=== PATIENT | female | born 1945 | race Two or more races ===

== ENCOUNTER → 2016-09-13 | Outpatient (CLI) | payer MEDICARE, MEDICAID ==
[2016-09-13 13:31] LABS: CHOLESTEROL 276.03 mg/dL (0-200); Direct HDL 48 mg/dL (>40); TRIGLYCERIDES 320 mg/dL (<150)
[2016-09-13 13:42] LABS: DIRECT LDL 166 mg/dL (<100)
== END ==
LOC: OD 12:13
PROVIDERS: ATTEND Internal Medicine
DX: E78.4 Other hyperlipidemia (principal); Z79.899 Other long term (current) drug therapy; R00.2 Palpitations; I10 Essential (primary) hypertension; E66.8 Other obesity; G47.30 Sleep apnea, unspecified; E13.9 Other specified diabetes mellitus without complications; R06.02 Shortness of breath; I25.10 Atherosclerotic heart disease of native coronary artery without angina pectoris
CPT/HCPCS: 36415; 80061

== ENCOUNTER → 2016-09-30 | Outpatient (CLI) | payer MEDICARE, MEDICAID | LOC: RAD 10:28 | PROVIDERS: ATTEND Urology | DX: N20.0 Calculus of kidney (principal) | CPT/HCPCS: 76770 ==

== ENCOUNTER 2016-10-27 17:52 | Emergency (ER) | payer MEDICARE, MEDICAID ==
[2016-10-27] MEDS ORDERED: ASPIRIN 81 MG TABLET, CHEWABLE PO ONE (18:23)
--- NOTE | 2016-10-27 18:40 | ER Document Report ---
ED Medical Screen (RME) - General Chief Complaint: Chest Pain Stated Complaint: CHEST PAIN,SHORTNESS OF BREATH Notes: Patient is complaining of anterior chest pain that goes into her left shoulder and left arm since yesterday. It's associated with shortness of breath, as well. Patient has felt this way in the past and has been her heart causing her symptoms. She has a history of a heart attack in the past. IDDM, hypertension. TRAVEL OUTSIDE OF THE [place] IN LAST 30 DAYS: No - Related Data Allergies/Adverse Reactions: codeine [Codeine] Allergy (Verified 10/27/16 17:58) Facial edema and rash oxycodone [Oxycodone] Allergy (Verified 10/27/16 17:58) Facial edema and rash oxycodone HCl [From Percocet] Allergy (Verified 10/27/16 17:58) Facial edema and rash Qdcpfkh-Jfw-Ars Reductase Inhibitor Allergy (Verified 10/27/16 17:58) muscle pain Past Medical History - Past Medical History Cardiac Medical History: Reports: Hx Hypercholesterolemia, Hx Hypertension, Hx Pulmonary Embolism Denies: Hx Atrial Fibrillation, Hx Congestive Heart Failure, Hx Coronary Artery Disease, Hx Heart Attack, Hx Peripheral Vascular Disease, Hx Heart Murmur Pulmonary Medical History: Reports: Hx Asthma - only with a cold, Hx Bronchitis , Hx Pneumonia, Hx Sleep Apnea Denies: Hx COPD, Hx Respiratory Failure, Hx Tuberculosis Neurological Medical History: Denies: Hx Cerebrovascular Accident, Hx Seizures Endocrine Medical History: Reports: Hx Diabetes Mellitus Type 1, Hx Diabetes Mellitus Type 2. Denies: Hx Graves' Disease, Hx Hyperthyroidism, Hx Hypothyroidism Renal/ Medical History: Reports: Hx Kidney Stones. Denies: Hx End Stage Renal Disease, Hx Ovarian Cysts, Hx Peritoneal Dialysis, Hx Pelvic Inflammatory Disease Malignancy Medical History: Denies: Hx Breast Cancer, Hx Cervical Cancer, Hx Leukemia, Hx Lung Cancer, Hx Ovarian Cancer GI Medical History: Reports: Hx Gastroesophageal Reflux Disease, Hx Endoscopy. Denies: Hx Crohn's Disease, Hx Hepatitis, Hx Hiatal Hernia, Hx Irritable Bowel, Hx Liver Failure, Hx Ulcer Musculoskeltal Medical History: Reports Hx Arthritis, Denies Hx Fibromyalgia, Denies Hx Multiple Sclerosis, Denies Hx Muscular Dystrophy, Reports Hx Musculoskeletal Deformity - carpal tunnel, knee replacement, Reports Hx Musculoskeletal Trauma Psychiatric Medical History: Reports: Hx Depression, Hx Schizophrenia Denies: Hx Bipolar Disorder, Hx Dementia, Hx Post Traumatic Stress Disorder Traumatic Medical History: Reports: Hx Fractures Infectious Medical History: Denies: Hx Hepatitis, Hx HIV Past Surgical History: Reports: Hx Cardiac Catheterization, Hx Cholecystectomy, Hx Hysterectomy - partial, Hx Orthopedic Surgery - bilateral knee replacement and carpal tunnel on left, Hx Pancreatic Surgery. Denies: Hx Colostomy, Hx Mastectomy, Hx Open Heart Surgery, Hx Pacemaker - Immunizations Hx Diphtheria, Pertussis, Tetanus Vaccination: Yes Physical Exam - Vital signs Vitals: Temp Pulse Resp BP Pulse Ox 97.8 F 87 20 150/101 H 96 10/27/16 17:57 10/27/16 17:57 10/27/16 17:57 10/27/16 17:57 10/27/16 17:57 Course - Vital Signs Vital signs: Temp Pulse Resp BP Pulse Ox 97.8 F 86 20 150/101 H 96 10/27/16 17:59 10/27/16 17:59 10/27/16 17:59 10/27/16 17:59 10/27/16 17:59
[2016-10-27 18:48] LABS: ABSOLUTE BASOPHILS # (AUTO) 0.1 10^3/uL (0.0-0.2); ABSOLUTE EOSINOPHILS # (AUTO) 0.3 10^3/uL (0.0-0.6); ABSOLUTE LYMPHOCYTES (AUTO) 3.3 10^3/uL (0.5-4.7); ABSOLUTE MONOCYTES (AUTO) 0.6 10^3/uL (0.1-1.4); ABSOLUTE NEUT (AUTO) 4.4 10^3/uL (1.7-8.2); BASOPHILS % (AUTO) 0.6 % (0-2); EOSINOPHILS % (AUTO) 3.3 % (0-6); HEMATOCRIT 39.7 % (36.0-47.0); HEMOGLOBIN 13.4 g/dL (12.0-15.5); HGB HCT DIFFERENCE 0.5; MEAN CORPUSCULAR HEMOGLOBIN 30.1 pg (27.0-33.4); MEAN CORPUSCULAR HGB CONC 33.7 g/dL (32.0-36.0); MEAN CORPUSCULAR VOLUME 89 fl (80-97); RED BLOOD COUNT 4.45 10^6/uL (3.72-5.28); RED CELL DISTRIBUTION WIDTH 14.1 % (11.5-14.0); SEGMENTED NEUTROPHILS % (AUTO) 51.1 % (42-78); WHITE BLOOD COUNT 8.7 10^3/uL (4.0-10.5)
[2016-10-27 19:07] LABS: ALANINE AMINOTRANSFERASE 33 U/L (9-52); ALBUMIN 4.1 g/dL (3.5-5.0); ALKALINE PHOSPHATASE 104 U/L (38-126); ANION GAP 15 (5-19); ASPARTATE AMINO TRANSFERASE 23 U/L (14-36); BILIRUBIN,DIRECT 0.4 mg/dL (0.0-0.4); BILIRUBIN,TOTAL 1.4 mg/dL (0.2-1.3); BLOOD UREA NITROGEN 30 mg/dL (7-20); CALCIUM 10.3 mg/dL (8.4-10.2); CARBON DIOXIDE 27 mmol/L (22-30); CHLORIDE 96 mmol/L (98-107); CREATINE KINASE 69 U/L (30-135); CREATININE RESULT 0.94 mg/dL (0.52-1.25); GLUCOSE 239 mg/dL (75-110); POTASSIUM 4.8 mmol/L (3.6-5.0); SODIUM 137.9 mmol/L (137-145); TOTAL PROTEIN 7.9 g/dL (6.3-8.2)
[2016-10-27 19:20] LABS: CREATINE KINASE MB 2.06 ng/mL (<4.55)
[2016-10-27 19:21] LABS: TROPONIN I < 0.012 ng/mL
--- NOTE | 2016-10-27 20:07 | EKG REPORT ---
SEVERITY:- ABNORMAL ECG - SINUS RHYTHM CONSIDER LEFT VENTRICULAR HYPERTROPHY : Confirmed by: Mary Otto MD 27-Oct-2016 20:06:54
[2016-10-28] MEDS ORDERED: MORPHINE SULFATE 10 MG/ML INJ IV ONE (00:14)
[2016-10-28] MEDS ORDERED: ONDANSETRON HCL INJ/PF 4 MG/2 ML SDV IV ONE (00:15)
--- NOTE | 2016-10-28 00:20 | ER Document Report ---
ED General - General Chief Complaint: Chest Pain Stated Complaint: CHEST PAIN,SHORTNESS OF BREATH Time seen by provider: 00:05 Notes: Patient is a 71-year-old female that comes emergency department for chief complaint of pain in the front of her chest that goes towards her back and then towards her left arm, she states that symptoms started about a day ago, she states her initial symptom was a cough, nonproductive, she denies fever. She states intermittently she feels like she is short of breath. Patient has a history of PE he, states she is not on any blood thinners, denies recent travel or surgery, denies smoking, however she states she has had left leg pains intermittently a few days ago. She denies any abdominal pain or flank pain, denies any urinary symptoms. Patient states she thinks she had an AL once, however she has had 3 cardiac catheterizations which were all negative. Other past medical history includes hypertension, hyperlipidemia, ESRD. TRAVEL OUTSIDE OF THE [place] IN LAST 30 DAYS: No - Related Data Allergies/Adverse Reactions: codeine [Codeine] Allergy (Verified 10/28/16 01:54) Facial edema and rash oxycodone [Oxycodone] Allergy (Verified 10/28/16 01:54) Facial edema and rash oxycodone HCl [From Percocet] Allergy (Verified 10/28/16 01:54) Facial edema and rash Vzbemsd-Ajv-Hif Reductase Inhibitor Allergy (Verified 10/28/16 01:54) muscle pain Past Medical History - General Information source: Patient - Social History Smoking Status: Never Smoker Frequency of alcohol use: None Drug Abuse: None Lives with: Family Family History: Arthritis, CAD, CVA, DM, Hyperlipidemia, Hypertension, Malignancy, Thyroid Disfunction Patient has suicidal ideation: No Patient has homicidal ideation: No - Past Medical History Cardiac Medical History: Reports: Hx Hypercholesterolemia, Hx Hypertension, Hx Pulmonary Embolism Denies: Hx Atrial Fibrillation, Hx Congestive Heart Failure, Hx Coronary Artery Disease, Hx Heart Attack, Hx Peripheral Vascular Disease, Hx Heart Murmur Pulmonary Medical History: Reports: Hx Asthma - only with a cold, Hx Bronchitis , Hx Pneumonia, Hx Sleep Apnea Denies: Hx COPD, Hx Respiratory Failure, Hx Tuberculosis Neurological Medical History: Denies: Hx Cerebrovascular Accident, Hx Seizures Endocrine Medical History: Reports: Hx Diabetes Mellitus Type 1, Hx Diabetes Mellitus Type 2. Denies: Hx Graves' Disease, Hx Hyperthyroidism, Hx Hypothyroidism Renal/ Medical History: Reports: Hx Kidney Stones. Denies: Hx End Stage Renal Disease, Hx Ovarian Cysts, Hx Peritoneal Dialysis, Hx Pelvic Inflammatory Disease Malignancy Medical History: Denies: Hx Breast Cancer, Hx Cervical Cancer, Hx Leukemia, Hx Lung Cancer, Hx Ovarian Cancer GI Medical History: Reports: Hx Gastroesophageal Reflux Disease, Hx Endoscopy. Denies: Hx Crohn's Disease, Hx Hepatitis, Hx Hiatal Hernia, Hx Irritable Bowel, Hx Liver Failure, Hx Ulcer Musculoskeltal Medical History: Reports Hx Arthritis, Denies Hx Fibromyalgia, Denies Hx Multiple Sclerosis, Denies Hx Muscular Dystrophy, Reports Hx Musculoskeletal Deformity - carpal tunnel, knee replacement, Reports Hx Musculoskeletal Trauma Psychiatric Medical History: Reports: Hx Depression, Hx Schizophrenia Denies: Hx Bipolar Disorder, Hx Dementia, Hx Post Traumatic Stress Disorder Traumatic Medical History: Reports: Hx Fractures Infectious Medical History: Denies: Hx Hepatitis, Hx HIV Past Surgical History: Reports: Hx Cardiac Catheterization, Hx Cholecystectomy, Hx Hysterectomy - partial, Hx Orthopedic Surgery - bilateral knee replacement and carpal tunnel on left, Hx Pancreatic Surgery. Denies: Hx Colostomy, Hx Mastectomy, Hx Open Heart Surgery, Hx Pacemaker - Immunizations Hx Diphtheria, Pertussis, Tetanus Vaccination: Yes Hx Pneumococcal Vaccination: 12/07/12 Review of Systems - Review of Systems Constitutional: No symptoms reported EENT: No symptoms reported Cardiovascular: See HPI Respiratory: See HPI Gastrointestinal: No symptoms reported Genitourinary: No symptoms reported Female Genitourinary: No symptoms reported Musculoskeletal: See HPI Skin: No symptoms reported Hematologic/Lymphatic: No symptoms reported Neurological/Psychological: No symptoms reported Physical Exam - Vital signs Vitals: Temp Pulse Resp BP Pulse Ox 97.8 F 87 20 150/101 H 96 10/27/16 17:57 10/27/16 17:57 10/27/16 17:57 10/27/16 17:57 10/27/16 17:57 Interpretation: Normal - General General appearance: Appears well, Alert In distress: None - Conversational and smiling - HEENT Head: Normocephalic, Atraumatic Eyes: Normal Conjunctiva: Normal Extraocular movements intact: Yes Eyelashes: Normal Pupils: PERRL Mucous membranes: Normal Pharynx: Normal Neck: Normal - Respiratory Respiratory status: No respiratory distress Chest status: Tender - Specific and reproducible pain with palpation of the right sided sternal border, very mild generalized tenderness otherwise, no erythema, swelling, ecchymosis Breath sounds: Normal. No: Decreased air movement, Wheezing Chest palpation: Normal - Cardiovascular Rhythm: Regular. No: Tachycardia Heart sounds: Normal auscultation, S1 appreciated, S2 appreciated Murmur: No - Abdominal Inspection: Normal Distension: No distension Bowel sounds: Normal Tenderness: Nontender. No: Tender Organomegaly: No organomegaly - Back Back: Normal, Nontender - Extremities General upper extremity: Normal inspection, Nontender, Normal color, Normal ROM , Normal temperature General lower extremity: Normal inspection, Nontender, Normal color, Normal ROM , Normal temperature, Normal weight bearing. No: Linda's sign - Neurological Neuro grossly intact: Yes Cognition: Normal Orientation: AAOx4 [place] Coma Scale Eye Opening: Spontaneous [place] Coma Scale Verbal: Oriented [place] Coma Scale Motor: Obeys Commands [place] Coma Scale Total: 15 Speech: Normal Motor strength normal: LUE, RUE, LLE, RLE Sensory: Normal - Psychological Associated symptoms: Normal affect, Normal mood - Skin Skin Temperature: Warm Skin Moisture: Dry Skin Color: Normal Course - Re-evaluation Re-evalutation: EKG with no significant T-wave inversions in consecutive leads, no ST segment changes, shows sinus rhythm. No significant change from prior. Chest x-ray unremarkable. CBC, chemistry generally patient's baseline, 2 negative sets of cardiac enzymes performed. CTA was performed to rule out pulmonary emboli, this was normal. Urinalysis contaminated with a lot of squamous epithelials, patient denies any urinary symptoms. Urine culture placed. Patient has palpable chest pain on her chest wall. Discussed with Dr. Zendejas. 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 Recommend this point patient perform follow-up with her jeep driver tomorrow, discusses patient in detail, patient states satisfaction and agreement with plan , family member states satisfaction and agreement. Symptom management provided. - Vital Signs Vital signs: Temp Pulse Resp BP Pulse Ox 98 F 78 20 148/87 H 98 10/28/16 03:40 10/28/16 03:40 10/28/16 03:40 10/28/16 03:40 10/28/16 03:40 - Laboratory Result Diagrams: 10/27/16 18:30 10/27/16 18:30 Laboratory results interpreted by me: 10/27/16 10/27/16 10/27/16 18:30 18:30 23:39 RDW 14.1 H Chloride 96 L BUN 30 H Est GFR (Non-Af Amer) 59 L Glucose 239 H Calcium 10.3 H Total Bilirubin 1.4 H Urine Protein 100 H Ur Leukocyte Esterase SMALL H Discharge - Discharge Clinical Impression: Cough Chest pain Qualifiers: Chest pain type: unspecified Qualified Code(s): R07.9 - Chest pain, unspecified Condition: Stable Disposition: HOME, SELF-CARE Additional Instructions: Your workup today did not show a blood clot, evidence of a heart attack, or any other concerning abnormality. This appears to be from her chest wall and coughing symptoms, take the pain medications and stool softener with it if needed, please call tomorrow to follow -up with your jeep driver closely. Return the emergency department for any concerning or worsening symptoms. Prescriptions: Docusate Sodium [Colace 100 mg Capsule] 100 mg PO DAILY #30 capsule Oxycodone HCl/Acetaminophen [Percocet 5-325 mg Tablet] 1 - 2 tab PO Q4H PRN #15 tablet PRN Reason: Referrals: TARSHA MAC PA-C [Primary Care Provider] - Follow up as needed
[2016-10-28 00:47] LABS: AMORPHOUS SEDIMENT,URINE TRACE /HPF; APPEARANCE,URINE CLOUDY; BILIRUBIN,URINE NEGATIVE (NEGATIVE); GLUCOSE, URINE NEGATIVE (NEGATIVE); KETONES,URINE NEGATIVE (NEGATIVE); LEUKOCYTE ESTERASE,URINE SMALL (NEGATIVE); NITRITE,URINE NEGATIVE (NEGATIVE); PROTEIN,URINE 100 mg/dL (NEGATIVE); URINE SPECIFIC GRAVITY 1.017; UROBILINOGEN,URINE NEGATIVE mg/dL (<2.0)
[2016-10-28 04:07] VITALS: BP 148/87
--- NOTE | 2016-10-28 07:41 | EKG REPORT ---
SEVERITY:- ABNORMAL ECG - SINUS RHYTHM NONSPECIFIC T ABNORMALITIES, DIFFUSE LEADS : Confirmed by: Mary Otto MD 28-Oct-2016 07:41:03
== END 2016-10-28 03:40 | disposition home or self-care (01) ==
LOC: ER 17:52
DX: R07.9 Chest pain, unspecified (principal); R05 Cough; R06.02 Shortness of breath; M79.602 Pain in left arm; Z86.711 Personal history of pulmonary embolism
CPT/HCPCS: 93005; 99285; 96374; 96375; 36415; 87086; 82553; 82550; 85025; 87088; 80053; 81001; 84484; 87186; 71010; 71275; 93010; J2270; J2405

== ENCOUNTER 2017-01-08 21:17 | Emergency (ER) | payer MEDICARE, MEDICAID ==
[2017-01-08] MEDS ORDERED: OXYCODONE-ACETAMINOPHEN 5-325 MG TABLET PO ONE (22:56)
--- NOTE | 2017-01-08 22:57 | ER Document Report ---
HPI - HPI Patient complains to provider of: left foot injury Pain Level: 4 Context: Patient is a 71-year-old female who comes emergency department for chief complaint of left ankle and foot injury. She states she was walking quickly in the dark and accidentally hit her foot/ankle on a dresser. She reports bruising and swelling to both the foot and the ankle. Patient denies falling, denies any other injuries. She is not on a blood thinner. - CARDIOVASCULAR Cardiovascular: DENIES: Chest pain - REPRODUCTIVE LMP: na Reproductive: DENIES: : - DERM Skin Color: Ecchymosis Past Medical History - General Information source: Patient - Social History Smoking Status: Never Smoker Chew tobacco use (# tins/day): No Frequency of alcohol use: None Drug Abuse: None Lives with: Family Family History: Arthritis, CAD, CVA, DM, Hyperlipidemia, Hypertension, Malignancy, Thyroid Disfunction Patient has suicidal ideation: No Patient has homicidal ideation: No - Past Medical History Cardiac Medical History: Reports: Hx Hypercholesterolemia, Hx Hypertension, Hx Pulmonary Embolism Denies: Hx Atrial Fibrillation, Hx Congestive Heart Failure, Hx Coronary Artery Disease, Hx Heart Attack, Hx Peripheral Vascular Disease, Hx Heart Murmur Pulmonary Medical History: Reports: Hx Asthma - only with a cold, Hx Bronchitis , Hx Pneumonia, Hx Sleep Apnea Denies: Hx COPD, Hx Respiratory Failure, Hx Tuberculosis Neurological Medical History: Denies: Hx Cerebrovascular Accident, Hx Seizures Endocrine Medical History: Reports: Hx Diabetes Mellitus Type 2. Denies: Hx Graves' Disease, Hx Hyperthyroidism, Hx Hypothyroidism Renal/ Medical History: Reports: Hx Kidney Stones. Denies: Hx End Stage Renal Disease, Hx Ovarian Cysts, Hx Peritoneal Dialysis, Hx Pelvic Inflammatory Disease Malignancy Medical History: Denies: Hx Breast Cancer, Hx Cervical Cancer, Hx Leukemia, Hx Lung Cancer, Hx Ovarian Cancer GI Medical History: Reports: Hx Gastroesophageal Reflux Disease, Hx Endoscopy. Denies: Hx Crohn's Disease, Hx Hepatitis, Hx Hiatal Hernia, Hx Irritable Bowel, Hx Liver Failure, Hx Ulcer Musculoskeltal Medical History: Reports Hx Arthritis, Denies Hx Fibromyalgia, Denies Hx Multiple Sclerosis, Denies Hx Muscular Dystrophy, Reports Hx Musculoskeletal Deformity - carpal tunnel, knee replacement, Reports Hx Musculoskeletal Trauma Psychiatric Medical History: Reports: Hx Depression, Hx Schizophrenia Denies: Hx Bipolar Disorder, Hx Dementia, Hx Post Traumatic Stress Disorder Traumatic Medical History: Reports: Hx Fractures Infectious Medical History: Denies: Hx Hepatitis, Hx HIV Past Surgical History: Reports: Hx Cardiac Catheterization, Hx Cholecystectomy, Hx Hysterectomy, Hx Orthopedic Surgery - bilateral knee replacement and carpal tunnel on left, Hx Pancreatic Surgery. Denies: Hx Colostomy, Hx Mastectomy, Hx Open Heart Surgery, Hx Pacemaker - Immunizations Hx Diphtheria, Pertussis, Tetanus Vaccination: Yes Hx Pneumococcal Vaccination: 12/07/12 Vertical Provider Document - CONSTITUTIONAL General Appearance: WD/WN, No Apparent Distress, Obese - INFECTION CONTROL TRAVEL OUTSIDE OF THE [place] IN LAST 30 DAYS: No - HEENT HEENT: Atraumatic, Normocephalic - NECK Neck: Normal Inspection - RESPIRATORY Respiratory: Breath Sounds Normal, No Respiratory Distress O2 Sat by Pulse Oximetry: 95 - CARDIOVASCULAR Cardiovascular: Regular Rate, Regular Rhythm - GI/ABDOMEN Gastrointestinal: Abdomen Soft, Abdomen Non-Tender - BACK Back: Normal Inspection - MUSCULOSKELETAL/EXTREMETIES Musculoskeletal/Extremeties: Tender - There is a small amount of ecchymosis over the second and third digits of the left foot, mild tenderness over the top of the foot, there is some lateral and anterior swelling over the distal part of the left ankle, normal range of motion of the lower extremity, normal distal neurovascular exam, no open wounds, no other abnormality noted - NEURO Level of Consciousness: Awake, Alert, Appropriate Motor/Sensory: No Motor Deficit, No Sensory Deficit - DERM Integumentary: Warm, Dry, No Rash Course - Vital Signs Vital signs: Temp Pulse Resp BP Pulse Ox 97.7 F 73 16 150/82 H 95 01/08/17 21:39 01/08/17 21:39 01/08/17 21:39 01/08/17 21:39 01/08/17 21:39 - Diagnostic Test Radiology reviewed: Image reviewed, Reports reviewed Procedures - Immobilization left ankle Pre-Proc Neuro Vasc Exam: Normal Immobilizer type: Cock-up Performed by: RN Post-Proc Neuro Vasc Exam: Normal Alignment checked and good: Yes Discharge - Discharge Clinical Impression: Injury of left foot Qualifiers: Encounter type: initial encounter Qualified Code(s): S99.922A - Unspecified injury of left foot, initial encounter Left ankle injury Qualifiers: Encounter type: initial encounter Qualified Code(s): S99.912A - Unspecified injury of left ankle, initial encounter Condition: Stable Disposition: HOME, SELF-CARE Additional Instructions: There is some soft tissue swelling in both the foot and the ankle, however no fracture or other abnormality is seen on x-ray. Ice, elevate, take Tylenol for pain, placed ice on the area 3-4 times a day for 10-15 minutes, use the ankle stirrup for additional support. Follow-up with primary care. Return to the emergency department for any concerning symptoms including severe swelling, redness, or any other concerning symptoms.
--- NOTE | 2017-01-09 00:07 | RADIOLOGY REPORT (SQ) ---
EXAM DESCRIPTION: FOOT LEFT COMPLETE COMPLETED DATE/TIME: 01/08/2017 11:57 pm REASON FOR STUDY: hit on dresser, pain and swelling COMPARISON: None. NUMBER OF VIEWS: Three views. TECHNIQUE: AP, lateral and oblique radiographic images acquired of the left foot. LIMITATIONS: None. FINDINGS: MINERALIZATION: Osteopenia. BONES: No acute fracture or dislocation. No worrisome bone lesions. 0.2 cm ossicular fragmentation at the medial aspect of the left 1st proximal phalangeal head. JOINTS: No effusions. Mild osteoarthritis forefoot. SOFT TISSUES: No soft tissue swelling. No foreign body. OTHER: No other significant finding. IMPRESSION: NO RADIOGRAPHIC EVIDENCE OF ACUTE INJURY. TECHNICAL DOCUMENTATION: JOB ID: [id number] [employer]}- All Rights Reserved
--- NOTE | 2017-01-09 00:09 | RADIOLOGY REPORT (SQ) ---
EXAM DESCRIPTION: ANKLE LEFT COMPLETE COMPLETED DATE/TIME: 01/08/2017 11:57 pm REASON FOR STUDY: hit on dresser, pain and swelling COMPARISON: None. NUMBER OF VIEWS: Three views. TECHNIQUE: AP, lateral, and oblique radiographic images acquired of the left ankle. LIMITATIONS: None. FINDINGS: MINERALIZATION: Normal. BONES: No acute fracture or dislocation. No worrisome bone lesions. Small calcaneal enthesophytes. JOINTS: No effusions. SOFT TISSUES: Moderate diffuse ankle swelling. OTHER: No other significant finding. IMPRESSION: Moderate diffuse ankle swelling. TECHNICAL DOCUMENTATION: JOB ID: [id number] [employer]- All Rights Reserved
[2017-01-09] MEDS ORDERED: HYDROCODONE/ACETAMINOPHEN 5-325 MG 6 TAB/DSPK PO PRN (00:16)
[2017-01-09] MEDS ORDERED: DIPHENHYDRAMINE HCL 25 MG CAPSULE PO ONE (00:27)
[2017-01-09] MEDS ORDERED: OXYCODONE-ACETAMINOPHEN 5-325 MG TABLET PO ONE (00:27)
[2017-01-09 00:45] VITALS: BP 141/80
== END 2017-01-09 00:44 | disposition home or self-care (01) ==
LOC: ER 21:17
DX: S99.922A Unspecified injury of left foot, initial encounter (principal); S99.912A Unspecified injury of left ankle, initial encounter; W22.03XA Walked into furniture, initial encounter; E78.00 Pure hypercholesterolemia, unspecified; I10 Essential (primary) hypertension; E11.9 Type 2 diabetes mellitus without complications; Z87.442 Personal history of urinary calculi; K21.9 Gastro-esophageal reflux disease without esophagitis; Z90.49 Acquired absence of other specified parts of digestive tract; Z90.710 Acquired absence of both cervix and uterus; Z96.653 Presence of artificial knee joint, bilateral; Z86.711 Personal history of pulmonary embolism
CPT/HCPCS: 99283; 73610; 73630; L1902; A9270 ×2

== ENCOUNTER 2017-03-17 07:19 | Day surgery (SDC) | payer MEDICARE, MEDICAID ==
[~2017-03-17 07:19] MED LIST: KETOROLAC TROMETHAMINE 0.45% 4 DROP/0.4 ML DROPERETTE OD PRN
[2017-03-17] MEDS: CYCLOPENTOLATE 0.2%/PHENYLEPHRINE 1% OPH SOLN 2 ML OD PRN ×3 (07:43→08:15)
[2017-03-17] MEDS: TROPICAMIDE 1% OPH SOLN 3 ML OD PRN ×3 (07:43→08:15)
[2017-03-17] MEDS: BESIFLOXACIN HCL 0.6% OPH SUSP 5 ML BOTTLE OD PRN ×3 (07:44→08:56)
[2017-03-17] MEDS: TETRACAINE HCL 0.5% OPH SOLN 2 ML OD PRN ×3 (07:45→08:33)
[2017-03-17] MEDS ORDERED: EPINEPHRINE INJ/PF 1 MG/1 ML AMPULE ONE (07:48)
[2017-03-17] MEDS ORDERED: LIDOCAINE 1% INJ-PF (10 MG/ML) 30 ML SDV ONE (07:49)
[2017-03-17] MEDS ORDERED: CHONDR SU A NA/HYALUR INTRAOC KIT (SURGICARE) ONE (07:49)
[2017-03-17] MEDS ORDERED: MIDAZOLAM 2 MG/2 ML INJ ONE (08:07)
--- NOTE | 2017-03-17 15:03 | DISCHARGE SUMMARY E ---
Discharge Summary NAME: TERESA JOEL : 1945 AGE: 72Y ADMITTED: 03/17/2017 DISCHARGED: 03/17/2017 HISTORY AND HOSPITAL COURSE: This is a 72-year-old female who underwent cataract extraction of the right eye. Diagnosis: Cataract, right eye. She underwent surgery because she was having trouble reading small print and seeing road signs. DISCHARGE INSTRUCTIONS: She should be on a regular diet. No bending at the waist. No heavy lifting. She should use her Besivance, Durezol, and Ilevro at 3:00 p.m. and 8:00 p.m. and sleep with a rigid shield, and I will see them for a 1-day postoperative followup. DICTATING PHYSICIAN: XAVIER CHAUHAN M.D. [id number] PHY#: [id number] ID: [id number] JOB#: [id number] ACCT: [id number] cc:XAVIER CHAUHAN M.D. >
--- NOTE | 2017-03-17 16:23 | [facility] OPERATIVE REPORT E ---
[facility] Operative Report NAME: TERESA JOEL AGE: 72Y DATE OF SURGERY: 03/17/2017 ROOM: PREOPERATIVE DIAGNOSIS: CATARACT, RIGHT EYE. POSTOPERATIVE DIAGNOSIS: CATARACT, RIGHT EYE. OPERATION: Cataract extraction with intraocular lens implant of the right eye. SURGEON: XAVIER CHAUHAN M.D. ANESTHESIA: Topical. PROCEDURE: After obtaining appropriate consent, the patient's right eye was prepped and draped in sterile fashion as well as the surgeon in a sterile manner and cataract surgery was started. First a paracentesis blade was used to make a small side-port incision. Viscoelastic was used to inflate the anterior chamber. Next a 2.4 mm incision was made with the paracentesis blade. A continuous capsulorrhexis incision was made using a cystotome and Utrata forceps. Following this hydrodissection was carried out to make the lens fully loose and mobile and it was rotated 90 degrees. Following this, a xnotwd-ikw-camarvy technique was used to phacoemulsify the lens with a CDE of 10.92. The remaining cortex was removed with irrigation/aspiration. Provisc was instilled into the capsular bag to inflate the bag. A SN60WF, 21.5 diopter lens was placed. The remaining viscoelastic material was removed with irrigation/aspiration. Following this, a 10-0 nylon suture was used to close the incision and it was found to be watertight. Vigamox was instilled in the eye and a protective shield was placed over the eye. The patient returned to the postoperative recovery in stable condition. DICTATING PHYSICIAN: XAVIER CHAUHAN M.D. [id number] PHY#: [id number] ID: [id number] JOB#: [id number] ACCT: [id number] cc:XAVIER CHAUHAN M.D. >
== END 2017-03-17 09:57 | disposition home or self-care (01) ==
LOC: SC 07:19
PROVIDERS: ATTEND Internal Medicine
PROC: 08RJ3JZ Replacement of Right Lens with Synthetic Substitute, Percutaneous Approach (ICD-10-PCS; principal; 2017-03-17 08:30)
DX: H25.11 Age-related nuclear cataract, right eye (principal); Z96.1 Presence of intraocular lens; H04.123 Dry eye syndrome of bilateral lacrimal glands; H40.052 Ocular hypertension, left eye; E11.9 Type 2 diabetes mellitus without complications; J45.909 Unspecified asthma, uncomplicated; K21.9 Gastro-esophageal reflux disease without esophagitis; I10 Essential (primary) hypertension; I25.2 Old myocardial infarction; Z79.51 Long term (current) use of inhaled steroids; Z79.4 Long term (current) use of insulin; Z79.899 Other long term (current) drug therapy; Z88.5 Allergy status to narcotic agent; Z98.42 Cataract extraction status, left eye
CPT/HCPCS: 66984; 82962; V2632; J2250; J3490 ×2; A9270; J0171; 142

== ENCOUNTER 2017-04-16 17:11 | Emergency (ER) | payer MEDICARE, MEDICAID ==
--- NOTE | 2017-04-16 17:58 | ER Document Report ---
ED Medical Screen (RME) - General Chief Complaint: Chest Pain Stated Complaint: CHEST PAIN Time Seen by Provider: 04/16/17 17:49 Mode of Arrival: Ambulatory Information source: Patient Notes: 72-year-old female presents with complaints of dizziness over the past 2 days had a syncopal episode today and had some slurred speech with it at 4:11 PM, she admits to chest pain I have greeted and performed a rapid initial assessment of this patient. A comprehensive ED assessment and evaluation of the patient, analysis of test results and completion of the medical decision making process will be conducted by additional ED providers. PHYSICAL EXAMINATION: GENERAL: Well-appearing, well-nourished and in no acute distress. HEAD: Atraumatic, normocephalic. EYES: Pupils equal round extraocular movements intact, conjunctiva are normal. ENT: Nares patent NECK: Normal range of motion LUNGS: No respiratory distress Musculoskeletal: Normal range of motion NEUROLOGICAL: Normal speech, normal gait. PSYCH: Normal mood, normal affect. SKIN: Warm, Dry, normal turgor, no rashes or lesions noted. TRAVEL OUTSIDE OF THE [place] IN LAST 30 DAYS: No - Related Data Allergies/Adverse Reactions: codeine [Codeine] Allergy (Verified 04/16/17 17:28) Facial edema and rash Past Medical History - Social History Frequency of alcohol use: None Drug Abuse: None - Past Medical History Cardiac Medical History: Reports: Hx Heart Attack - 2016, Hx Hypercholesterolemia, Hx Hypertension - MEDICATED, Hx Pulmonary Embolism Denies: Hx Atrial Fibrillation, Hx Congestive Heart Failure, Hx Coronary Artery Disease, Hx Peripheral Vascular Disease, Hx Heart Murmur Pulmonary Medical History: Reports: Hx Asthma - MED PRN, Hx Bronchitis, Hx Pneumonia, Hx Sleep Apnea Denies: Hx COPD, Hx Respiratory Failure, Hx Tuberculosis Neurological Medical History: Denies: Hx Cerebrovascular Accident, Hx Seizures Endocrine Medical History: Reports: Hx Diabetes Mellitus Type 1, Hx Diabetes Mellitus Type 2. Denies: Hx Graves' Disease, Hx Hyperthyroidism, Hx Hypothyroidism Renal/ Medical History: Reports: Hx Kidney Stones. Denies: Hx End Stage Renal Disease, Hx Ovarian Cysts, Hx Peritoneal Dialysis, Hx Pelvic Inflammatory Disease Malignancy Medical History: Denies: Hx Breast Cancer, Hx Cervical Cancer, Hx Leukemia, Hx Lung Cancer, Hx Ovarian Cancer GI Medical History: Reports: Hx Gastroesophageal Reflux Disease, Hx Endoscopy. Denies: Hx Crohn's Disease, Hx Hepatitis, Hx Hiatal Hernia, Hx Irritable Bowel, Hx Liver Failure, Hx Ulcer Musculoskeltal Medical History: Reports Hx Arthritis - RA, Denies Hx Fibromyalgia, Denies Hx Multiple Sclerosis, Denies Hx Muscular Dystrophy, Reports Hx Musculoskeletal Deformity - carpal tunnel, knee replacement, Reports Hx Musculoskeletal Trauma Psychiatric Medical History: Reports: Hx Depression, Hx Schizophrenia Denies: Hx Bipolar Disorder, Hx Dementia, Hx Post Traumatic Stress Disorder Traumatic Medical History: Reports: Hx Fractures Infectious Medical History: Denies: Hx Hepatitis, Hx HIV Past Surgical History: Reports: Hx Cardiac Catheterization, Hx Cholecystectomy, Hx Hysterectomy, Hx Orthopedic Surgery - bilateral knee replacement and carpal tunnel on left, Hx Pancreatic Surgery. Denies: Hx Colostomy, Hx Mastectomy, Hx Open Heart Surgery, Hx Pacemaker - Immunizations Hx Diphtheria, Pertussis, Tetanus Vaccination: Yes Physical Exam - Vital signs Vitals: Temp Pulse Resp BP Pulse Ox 97.7 F 78 20 155/72 H 96 04/16/17 17:30 04/16/17 17:30 04/16/17 17:30 04/16/17 17:30 04/16/17 17:30 Course - Vital Signs Vital signs: Temp Pulse Resp BP Pulse Ox 97.7 F 78 20 155/72 H 96 04/16/17 17:30 04/16/17 17:30 04/16/17 17:30 04/16/17 17:30 04/16/17 17:30
--- NOTE | 2017-04-16 18:17 | RADIOLOGY REPORT (SQ) ---
EXAM DESCRIPTION: CT HEAD WITHOUT COMPLETED DATE/TIME: 04/16/2017 6:05 pm REASON FOR STUDY: dizziness, slurred speech COMPARISON: 01/31/2012 TECHNIQUE: Axial images acquired through the brain without intravenous contrast. Images reviewed wi th bone, brain and subdural windows. Images stored on PACS. All CT scanners at this facility use dose modulation, iterative reconstruction, and/or weight based d osing when appropriate to reduce radiation dose to as low as reasonably achievable (ALARA). [facility]: Dose Right [facility]: CareDose [facility]: Dose Right [facility]: Teradose 4D [facility]: [employer] RADIATION DOSE: Up-to-date CT equipment and radiation dose reduction techniques were employed. CTDIv ol: 64.6 mGy. DLP: 1163 mGy-cm. mGy. LIMITATIONS: None. FINDINGS: VENTRICLES: Normal size and contour. CEREBRUM: No masses. No hemorrhage. No midline shift. No evidence for acute infarction. Normal gra y/white matter differentiation. No areas of low density in the white matter. CEREBELLUM: No masses. No hemorrhage. No alteration of density. No evidence for acute infarction. EXTRAAXIAL SPACES: No fluid collections. No masses. ORBITS AND GLOBE: No intra- or extraconal masses. Normal contour of globe without masses. CALVARIUM: No fracture. PARANASAL SINUSES: No fluid or mucosal thickening. SOFT TISSUES: No mass or hematoma. OTHER: No other significant finding. IMPRESSION: NORMAL BRAIN CT WITHOUT CONTRAST. EVIDENCE OF ACUTE STROKE: NO. COMMENT: Quality ID # [id number]: Final reports with documentation of one or more dose reduction techniques (e.g., Automated exposure control, adjustment of the mA and/or kV according to patient size, use of iterative reconstruction technique) TECHNICAL DOCUMENTATION: JOB ID: [id number] [employer]- All Rights Reserved
[2017-04-16] MEDS ORDERED: MECLIZINE HCL 25 MG TABLET PO ONE (18:33)
--- NOTE | 2017-04-16 18:34 | ER Document Report ---
ED General - General Chief Complaint: Chest Pain Stated Complaint: CHEST PAIN Time Seen by Provider: 04/16/17 17:49 Mode of Arrival: Ambulatory Information source: Patient, Relative Notes: This 72-year-old female patient comes emergency room complaining of episodes of dizziness off and on for the past 3 days. Today she was sweeping a floor in front of her sofa when she had sudden onset of dizziness, felt like she was going to fall out and set herself on the sofa. There was no loss of consciousness. There was no injury. She also reports left-sided chest pain and left arm pain. She notes that the dizziness is worse when she turns her head to either side. TRAVEL OUTSIDE OF THE [place] IN LAST 30 DAYS: No - Related Data Allergies/Adverse Reactions: codeine [Codeine] Allergy (Verified 04/16/17 17:28) Facial edema and rash Past Medical History - General Information source: Patient, Relative, [facility] Records - Social History Smoking Status: Never Smoker Cigarette use (# per day): No Chew tobacco use (# tins/day): No Smoking Education Provided: No Frequency of alcohol use: None Drug Abuse: None Lives with: Family Family History: Arthritis, CAD, CVA, DM, Hyperlipidemia, Hypertension, Malignancy, Thyroid Disfunction - Past Medical History Cardiac Medical History: Reports: Hx Heart Attack, Hx Hypercholesterolemia, Hx Hypertension Pulmonary Medical History: Reports: Hx Asthma - MED PRN, Hx Bronchitis, Hx Pneumonia, Hx Sleep Apnea EENT Medical History: Reports: None Neurological Medical History: Reports: None Endocrine Medical History: Reports: Hx Diabetes Mellitus Type 2 Renal/ Medical History: Reports: Hx Kidney Stones GI Medical History: Reports: Hx Gastroesophageal Reflux Disease, Hx Endoscopy Musculoskeltal Medical History: Reports Hx Arthritis - RA, Reports Hx Musculoskeletal Deformity - carpal tunnel, knee replacement, Reports Hx Musculoskeletal Trauma Psychiatric Medical History: Reports: Hx Depression, Hx Schizophrenia Traumatic Medical History: Reports: Hx Fractures Past Surgical History: Reports: Hx Cardiac Catheterization, Hx Cholecystectomy, Hx Hysterectomy, Hx Orthopedic Surgery - bilateral knee replacement and carpal tunnel on left, Hx Pancreatic Surgery - Immunizations Hx Diphtheria, Pertussis, Tetanus Vaccination: Yes Hx Pneumococcal Vaccination: 12/07/12 Review of Systems - Review of Systems Constitutional: No symptoms reported EENT: No symptoms reported Cardiovascular: Chest pain - Prior visits for chest wall pain Respiratory: No symptoms reported Gastrointestinal: No symptoms reported Genitourinary: No symptoms reported Female Genitourinary: Post menopausal Musculoskeletal: No symptoms reported Skin: No symptoms reported Hematologic/Lymphatic: No symptoms reported Neurological/Psychological: See HPI Physical Exam - Vital signs Vitals: Temp Pulse Resp BP Pulse Ox 97.7 F 78 20 155/72 H 96 04/16/17 17:30 04/16/17 17:30 04/16/17 17:30 04/16/17 17:30 04/16/17 17:30 Interpretation: Normal - General General appearance: Appears well, Alert In distress: None - HEENT Head: Normocephalic, Atraumatic Eyes: Normal Extraocular movements intact: Yes - There is some nystagmus following rapid head movement Pupils: PERRL Neck: Normal - Respiratory Respiratory status: No respiratory distress Breath sounds: Normal - Cardiovascular Rhythm: Regular Heart sounds: Normal auscultation Murmur: No - Abdominal Inspection: Obese Bowel sounds: Normal Tenderness: Nontender - Back Back: Normal - Extremities General upper extremity: Normal strength, Normal temperature General lower extremity: Normal inspection, Normal strength. No: Edema - Neurological Neuro grossly intact: Yes Notes: Patient has normal strength coordination and sensation to all of her extremities. She does get an increase in the dizzy sensation when I have her turn her head to the left or to the right while laying at about a 45 recumbent posture. - Psychological Associated symptoms: Normal affect, Normal mood - Skin Skin Temperature: Warm Skin Moisture: Dry Skin Color: Normal Course - Re-evaluation Re-evalutation: 04/16/17 20:22 The urinalysis suggest the patient has a urinary tract infection. Looking at previous urinary tract infections or culture, she usually grows an E. coli that is sensitive to several sports, resistant to fluoroquinolones, Septra, and tetracyclines. She states she cannot really tell a difference in her dizziness. An extensive discussion with the daughter and the patient with the daughter speaking [place] intermittently with the patient to help clarify things. It sounds like she has had this dizziness for at least 3 days and it will wax and wane. It seems that it is most noticeable when she gets up and tries to walk anywhere. She is able to lay down and watch TV without symptoms. 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 It does not sound like the symptoms are due to stroke. - Vital Signs Vital signs: Temp Pulse Resp BP Pulse Ox 97.7 F 78 15 132/80 H 95 04/16/17 17:30 04/16/17 17:51 04/16/17 20:01 04/16/17 20:00 04/16/17 20:01 - Laboratory Result Diagrams: 04/16/17 18:27 04/16/17 18:27 Laboratory results interpreted by me: 04/16/17 04/16/17 18:27 18:27 Sodium 136.5 L Glucose 337 H Alkaline Phosphatase 127 H Urine Protein 100 H Urine Glucose (UA) >=500 H Ur Leukocyte Esterase SMALL H - Diagnostic Test Radiology reviewed: Image reviewed - Chest x-ray is unremarkable, Reports reviewed - CT scan of the head is unremarkable. - EKG Interpretation by Me EKG shows normal: Sinus rhythm, [place], Intervals, QRS Complexes. abnormal: ST-T Waves - Borderline anterior lateral T abnormalities Rate: Normal - 81 Rhythm: NSR [place]/QRS: Left axis deviation Discharge - Discharge Clinical Impression: Vertigo Urinary tract infection Qualifiers: Urinary tract infection type: site unspecified Hematuria presence: with hematuria Qualified Code(s): N39.0 - Urinary tract infection, site not specified ; R31.9 - Hematuria, unspecified; R31.9 - Hematuria, unspecified Condition: Stable Disposition: HOME, SELF-CARE Additional Instructions: Vertigo: You have experienced an episode of vertigo -- a whirling dizziness which may be accompanied by nausea and vomiting or staggering. Vertigo is often caused by an irritation of the inner ear, in which case it is called labyrinthitis. It can also be a symptom of a degenerating inner ear, nerve damage, or brain injury. Your physician has evaluated you to determine whether any further testing is necessary. Vertigo is often treated with dramamine or meclizine. These medications are helpful, but stronger medication may be needed if you are vomiting. Rest in bed. You should not drive or operate machinery until completely better. It may take one to three weeks for recovery. If there are new symptoms, such as decreased hearing or vision, severe headache, weakness or faintness, or confusion, call the physician. Urinary Tract Infection: Your evaluation indicates that you have a urinary tract infection. This is due to germs growing in the bladder. This is a common problem. This infection usually responds quickly to antibiotics. Your antibiotic should be taken exactly as prescribed. Drink plenty of fluids -- three to four quarts a day. Occasionally, a bladder anesthetic will be prescribed to help stop the feeling of urgency until the antibiotic has a chance to clear the infection. This may cause your urine to be dark orange. Certain urine infections require a culture. If the doctor obtained a culture, the results will be back in two days. You should call to see if a change in treatment is needed. A repeat urinalysis after you finish treatment is often recommended. The physician will let you know if further testing is required. Call the doctor if you develop fever, chills, flank pain, inability to urinate, or blood in the urine. //////////////////////////////////////////////////////////////////////////////// //////////////////////////////////////////////////////////// Take the medications as prescribed for dizziness and for your bladder infection. Follow-up with your doctor Tuesday or Tuesday to check on the culture results and to reevaluate your symptoms. You may need a referral to an ear nose and throat doctor if your dizziness symptoms do not improve. RETURN TO THE EMERGENCY ROOM IF ANY NEW OR WORSENING SYMPTOMS. Prescriptions: Cephalexin Monohydrate [Keflex 500 mg Capsule] 500 mg PO BID #10 capsule Meclizine HCl [Antivert 25 mg Tablet] 25 mg PO TID PRN #20 tablet PRN Reason: Referrals: TARSHA MAC PA-C [Primary Care Provider] - 04/18/17 Scribe Attestation: 04/16/17 20:50 I personally performed the services described in the documentation, reviewed and edited the documentation which was dictated to the scribe in my presence, and it accurately records my words and actions.
[2017-04-16 18:40] LABS: ABSOLUTE BASOPHILS # (AUTO) 0.1 10^3/uL (0.0-0.2); ABSOLUTE EOSINOPHILS # (AUTO) 0.2 10^3/uL (0.0-0.6); ABSOLUTE LYMPHOCYTES (AUTO) 3.2 10^3/uL (0.5-4.7); ABSOLUTE MONOCYTES (AUTO) 0.2 10^3/uL (0.1-1.4); ABSOLUTE NEUT (AUTO) 3.6 10^3/uL (1.7-8.2); BASOPHILS % (AUTO) 0.7 % (0-2); EOSINOPHILS % (AUTO) 2.4 % (0-6); HEMATOCRIT 37.9 % (36.0-47.0); HEMOGLOBIN 12.7 g/dL (12.0-15.5); HGB HCT DIFFERENCE 0.2; LYMPHOCYTES % (AUTO) 43.9 % (13-45); MEAN CORPUSCULAR HEMOGLOBIN 30.2 pg (27.0-33.4); MEAN CORPUSCULAR HGB CONC 33.6 g/dL (32.0-36.0); MEAN CORPUSCULAR VOLUME 90 fl (80-97); MONOCYTES % (AUTO) 3.5 % (3-13); RED BLOOD COUNT 4.22 10^6/uL (3.72-5.28); RED CELL DISTRIBUTION WIDTH 13.8 % (11.5-14.0); SEGMENTED NEUTROPHILS % (AUTO) 49.5 % (42-78); WHITE BLOOD COUNT 7.2 10^3/uL (4.0-10.5)
[2017-04-16 18:46] LABS: PROTHROMBIN TIME 12.1 SEC (11.4-15.4)
[2017-04-16 18:47] LABS: PARTIAL THROMBOPLASTIN TIME 27.4 SEC (23.5-35.8)
--- NOTE | 2017-04-16 18:56 | RADIOLOGY REPORT (SQ) ---
EXAM DESCRIPTION: CHEST SINGLE VIEW COMPLETED DATE/TIME: 04/16/2017 6:38 pm REASON FOR STUDY: dizziness, slurred speech COMPARISON: 10/27/2016 EXAM PARAMETERS: NUMBER OF VIEWS: One view. TECHNIQUE: Single frontal radiographic view of the chest acquired. RADIATION DOSE: NA LIMITATIONS: None. FINDINGS: LUNGS AND PLEURA: No opacities, masses or pneumothorax. No pleural effusion. MEDIASTINUM AND HILAR STRUCTURES: No masses. Contour normal. HEART AND VASCULAR STRUCTURES: Heart normal in size. Normal vasculature. BONES: No acute findings. HARDWARE: None in the chest. OTHER: No other significant finding. IMPRESSION: NO ACUTE RADIOGRAPHIC FINDING IN THE CHEST. TECHNICAL DOCUMENTATION: JOB ID: [id number]
[2017-04-16 18:57] LABS: AMORPHOUS SEDIMENT,URINE TRACE /HPF; APPEARANCE,URINE SLIGHTLY-CLOUDY; BILIRUBIN,URINE NEGATIVE (NEGATIVE); GLUCOSE, URINE >=500 mg/dL (NEGATIVE); KETONES,URINE NEGATIVE (NEGATIVE); LEUKOCYTE ESTERASE,URINE SMALL (NEGATIVE); NITRITE,URINE NEGATIVE (NEGATIVE); PROTEIN,URINE 100 mg/dL (NEGATIVE); URINE SPECIFIC GRAVITY 1.015; UROBILINOGEN,URINE NEGATIVE mg/dL (<2.0)
[2017-04-16 18:58] LABS: ALANINE AMINOTRANSFERASE 48 U/L (9-52); ALBUMIN 3.7 g/dL (3.5-5.0); ALKALINE PHOSPHATASE 127 U/L (38-126); ANION GAP 9 (5-19); ASPARTATE AMINO TRANSFERASE 31 U/L (14-36); BILIRUBIN,DIRECT 0.4 mg/dL (0.0-0.4); BILIRUBIN,TOTAL 0.8 mg/dL (0.2-1.3); BLOOD UREA NITROGEN 18 mg/dL (7-20); CALCIUM 9.4 mg/dL (8.4-10.2); CARBON DIOXIDE 29 mmol/L (22-30); CHLORIDE 99 mmol/L (98-107); CREATINE KINASE 131 U/L (30-135); CREATININE RESULT 0.84 mg/dL (0.52-1.25); GLUCOSE 337 mg/dL (75-110); POTASSIUM 4.1 mmol/L (3.6-5.0); SODIUM 136.5 mmol/L (137-145)
[2017-04-16 19:10] LABS: CREATINE KINASE MB 2.38 ng/mL (<4.55); TROPONIN I < 0.012 ng/mL
[2017-04-16] MEDS ORDERED: FLUCONAZOLE 100 MG TABLET PO ONE (20:38)
[2017-04-16] MEDS ORDERED: CEPHALEXIN 500 MG CAPSULE PO ONE (20:39)
[2017-04-16 22:02] VITALS: BP 131/72
--- NOTE | 2017-04-18 06:27 | EKG REPORT ---
SEVERITY:- BORDERLINE ECG - SINUS RHYTHM BORDERLINE LEFT AXIS DEVIATION BORDERLINE T ABNORMALITIES, ANT-LAT LEADS : Confirmed by: Mary Otto MD 18-Apr-2017 06:26:06
== END 2017-04-16 19:48 | disposition home or self-care (01) ==
LOC: ER 17:11
DX: N39.0 Urinary tract infection, site not specified (principal); R31.9 Hematuria, unspecified; R42 Dizziness and giddiness; R07.9 Chest pain, unspecified
CPT/HCPCS: 93005; 99285; 36415; 87086; 82553; 82550; 85025; 85610; 85730; 87088; 80053; 81001; 84484; 87186; 71010; 70450; 93010; A9270

== ENCOUNTER 2018-06-15 12:47 | Emergency (ER) | payer MEDICARE, MEDICAID ==
[2018-06-15] MEDS ORDERED: ASPIRIN 81 MG TABLET, CHEWABLE PO ONE (13:29)
--- NOTE | 2018-06-15 13:30 | ER Document Report ---
ED Medical Screen (RME) - General Chief Complaint: Shortness Of Breath Stated Complaint: ANKLE SWELLING, SHORTNESSS OF BREATH Time Seen by Provider: 06/15/18 13:29 Notes: 73 years old female with a history of myocardial infarction possible CHF presents today with difficulty in breathing as well as precordial chest pain. TRAVEL OUTSIDE OF THE [place] IN LAST 30 DAYS: No - Related Data Allergies/Adverse Reactions: codeine [Codeine] Allergy (Verified 06/15/18 12:50) Facial edema and rash Past Medical History - Past Medical History Cardiac Medical History: Reports: Hx Heart Attack, Hx Hypercholesterolemia, Hx Hypertension, Hx Pulmonary Embolism Denies: Hx Atrial Fibrillation, Hx Congestive Heart Failure, Hx Coronary Artery Disease, Hx Peripheral Vascular Disease, Hx Heart Murmur Pulmonary Medical History: Reports: Hx Asthma - MED PRN, Hx Bronchitis, Hx Pneumonia, Hx Sleep Apnea Denies: Hx COPD, Hx Respiratory Failure, Hx Tuberculosis Neurological Medical History: Denies: Hx Cerebrovascular Accident, Hx Seizures Endocrine Medical History: Reports: Hx Diabetes Mellitus Type 1, Hx Diabetes Mellitus Type 2. Denies: Hx Graves' Disease, Hx Hyperthyroidism, Hx Hypothyroidism Renal/ Medical History: Reports: Hx Kidney Stones. Denies: Hx End Stage Renal Disease, Hx Ovarian Cysts, Hx Peritoneal Dialysis, Hx Pelvic Inflammatory Disease Malignancy Medical History: Denies: Hx Breast Cancer, Hx Cervical Cancer, Hx Leukemia, Hx Lung Cancer, Hx Ovarian Cancer GI Medical History: Reports: Hx Gastroesophageal Reflux Disease, Hx Endoscopy. Denies: Hx Crohn's Disease, Hx Hepatitis, Hx Hiatal Hernia, Hx Irritable Bowel, Hx Liver Failure, Hx Pancreatitis, Hx Ulcer Musculoskeltal Medical History: Reports Hx Arthritis - RA, Denies Hx Fibromyalgia, Denies Hx Multiple Sclerosis, Denies Hx Muscular Dystrophy, Reports Hx Musculoskeletal Deformity - carpal tunnel, knee replacement, Reports Hx Musculoskeletal Trauma Psychiatric Medical History: Reports: Hx Depression, Hx Schizophrenia Denies: Hx Bipolar Disorder, Hx Dementia, Hx Post Traumatic Stress Disorder Traumatic Medical History: Reports: Hx Fractures Infectious Medical History: Denies: Hx Hepatitis, Hx HIV Past Surgical History: Reports: Hx Cardiac Catheterization, Hx Cholecystectomy, Hx Hysterectomy, Hx Orthopedic Surgery - bilateral knee replacement and carpal tunnel on left, Hx Pancreatic Surgery. Denies: Hx Colostomy, Hx Mastectomy, Hx Open Heart Surgery, Hx Pacemaker - Immunizations Hx Diphtheria, Pertussis, Tetanus Vaccination: Yes Physical Exam - Vital signs Vitals: Temp Pulse Resp BP Pulse Ox 98.0 F 76 18 161/82 H 96 06/15/18 12:51 06/15/18 12:51 06/15/18 12:51 06/15/18 12:51 06/15/18 12:51 Course - Vital Signs Vital signs: Temp Pulse Resp BP Pulse Ox 98.0 F 76 18 161/82 H 96 06/15/18 12:51 06/15/18 12:51 06/15/18 12:51 06/15/18 12:51 06/15/18 12:51 Doctor's Discharge - Discharge Referrals: TARSHA MAC PA-C [Primary Care Provider] - Follow up as needed
[2018-06-15] MEDS ORDERED: FUROSEMIDE INJ/PF 20 MG/2 ML SDV IV ONE (14:15)
[2018-06-15 14:28] LABS: ABSOLUTE EOSINOPHILS # (AUTO) 0.2 10^3/uL (0.0-0.6); ABSOLUTE LYMPHOCYTES (AUTO) 2.9 10^3/uL (0.5-4.7); ABSOLUTE MONOCYTES (AUTO) 0.5 10^3/uL (0.1-1.4); ABSOLUTE NEUT (AUTO) 3.5 10^3/uL (1.7-8.2); BASOPHILS % (AUTO) 0.4 % (0-2); EOSINOPHILS % (AUTO) 3.2 % (0-6); HEMATOCRIT 39.4 % (36.0-47.0); HEMOGLOBIN 13.2 g/dL (12.0-15.5); LYMPHOCYTES % (AUTO) 40.2 % (13-45); MEAN CORPUSCULAR HEMOGLOBIN 30.5 pg (27.0-33.4); MEAN CORPUSCULAR HGB CONC 33.6 g/dL (32.0-36.0); MEAN CORPUSCULAR VOLUME 91 fl (80-97); MONOCYTES % (AUTO) 7.2 % (3-13); PLATELET COUNT 212 10^3/uL (150-450); RED BLOOD COUNT 4.34 10^6/uL (3.72-5.28); RED CELL DISTRIBUTION WIDTH 13.3 % (11.5-14.0); TOTAL CELLS COUNTED % (AUTO) 100 %; WHITE BLOOD COUNT 7.2 10^3/uL (4.0-10.5)
--- NOTE | 2018-06-15 14:35 | RADIOLOGY REPORT (SQ) ---
EXAM DESCRIPTION: CHEST SINGLE VIEW COMPLETED DATE/TIME: 06/15/2018 2:24 pm REASON FOR STUDY: Chest pain COMPARISON: 10/27/2016 EXAM PARAMETERS: NUMBER OF VIEWS: One view. TECHNIQUE: Single frontal radiographic view of the chest acquired. RADIATION DOSE: NA LIMITATIONS: None. FINDINGS: LUNGS AND PLEURA: No opacities, masses or pneumothorax. No pleural effusion. MEDIASTINUM AND HILAR STRUCTURES: No masses. Contour normal. HEART AND VASCULAR STRUCTURES: Heart normal in size. Normal vasculature. BONES: No acute findings. HARDWARE: None in the chest. OTHER: No other significant finding. IMPRESSION: No acute abnormality of the lungs in AP projection. TECHNICAL DOCUMENTATION: JOB ID: [id number] [employer]- All Rights Reserved Reading location - IP/workstation name: [email or web address]
--- NOTE | 2018-06-15 14:39 | ER Document Report ---
ED General - General Chief Complaint: Shortness Of Breath Stated Complaint: ANKLE SWELLING, SHORTNESSS OF BREATH Time Seen by Provider: 06/15/18 13:29 Mode of Arrival: Ambulatory Information source: Patient TRAVEL OUTSIDE OF THE [place] IN LAST 30 DAYS: No - HPI Patient complains to provider of: leg swelling and shoretness of breath Onset: Other - This is 73-year-old female that presents for evaluation of 3 days of shortness of breath as well as ankle swelling. She notes that it made it more difficult for her to do her daily tasks but she specifically denies any chest pain, lightheadedness, loss of consciousness, abdominal pain, diarrhea constipation dysuria. She is never had anything like this in the past nothing seemed to make it better or worse. - Related Data Allergies/Adverse Reactions: codeine [Codeine] Allergy (Verified 06/15/18 12:50) Facial edema and rash Past Medical History - General Information source: Patient, Relative - Social History Smoking Status: Never Smoker Chew tobacco use (# tins/day): No Frequency of alcohol use: None Drug Abuse: None Family History: Arthritis, CAD, CVA, DM, Hyperlipidemia, Hypertension, Malignancy, Thyroid Disfunction Patient has suicidal ideation: No Patient has homicidal ideation: No - Past Medical History Cardiac Medical History: Reports: Hx Heart Attack, Hx Hypercholesterolemia, Hx Hypertension, Hx Pulmonary Embolism Denies: Hx Atrial Fibrillation, Hx Congestive Heart Failure, Hx Coronary Artery Disease, Hx Peripheral Vascular Disease, Hx Heart Murmur Pulmonary Medical History: Reports: Hx Asthma - MED PRN, Hx Bronchitis, Hx Pneumonia, Hx Sleep Apnea Denies: Hx COPD, Hx Respiratory Failure, Hx Tuberculosis Neurological Medical History: Denies: Hx Cerebrovascular Accident, Hx Seizures Endocrine Medical History: Reports: Hx Diabetes Mellitus Type 1, Hx Diabetes Mellitus Type 2. Denies: Hx Graves' Disease, Hx Hyperthyroidism, Hx Hypothyroidism Renal/ Medical History: Reports: Hx Kidney Stones. Denies: Hx End Stage Renal Disease, Hx Ovarian Cysts, Hx Peritoneal Dialysis, Hx Pelvic Inflammatory Disease Malignancy Medical History: Denies: Hx Breast Cancer, Hx Cervical Cancer, Hx Leukemia, Hx Lung Cancer, Hx Ovarian Cancer GI Medical History: Reports: Hx Gastroesophageal Reflux Disease, Hx Endoscopy. Denies: Hx Crohn's Disease, Hx Hepatitis, Hx Hiatal Hernia, Hx Irritable Bowel, Hx Liver Failure, Hx Pancreatitis, Hx Ulcer Musculoskeletal Medical History: Reports Hx Arthritis - RA, Denies Hx Fibromyalgia, Denies Hx Multiple Sclerosis, Denies Hx Muscular Dystrophy, Reports Hx Musculoskeletal Deformity - carpal tunnel, knee replacement, Reports Hx Musculoskeletal Trauma Psychiatric Medical History: Reports: Hx Depression, Hx Schizophrenia Denies: Hx Bipolar Disorder, Hx Dementia, Hx Post Traumatic Stress Disorder Traumatic Medical History: Reports: Hx Fractures Infectious Medical History: Denies: Hx Hepatitis, Hx HIV Past Surgical History: Reports: Hx Cardiac Catheterization, Hx Cholecystectomy, Hx Hysterectomy, Hx Orthopedic Surgery - bilateral knee replacement and carpal tunnel on left, Hx Pancreatic Surgery. Denies: Hx Colostomy, Hx Mastectomy, Hx Open Heart Surgery, Hx Pacemaker - Immunizations Hx Diphtheria, Pertussis, Tetanus Vaccination: Yes Hx Pneumococcal Vaccination: 12/07/12 Review of Systems - Review of Systems -: Yes All other systems reviewed and negative Physical Exam - Vital signs Vitals: Temp Pulse Resp BP Pulse Ox 98.0 F 76 18 161/82 H 96 06/15/18 12:51 06/15/18 12:51 06/15/18 12:51 06/15/18 12:51 06/15/18 12:51 - General General appearance: Appears well, Alert - HEENT Head: Normocephalic, Atraumatic Eyes: Normal Pupils: PERRL - Respiratory Respiratory status: No respiratory distress Chest status: Nontender Breath sounds: Normal Chest palpation: Normal - Cardiovascular Rhythm: Regular Heart sounds: Normal auscultation Murmur: No - Abdominal Inspection: Normal Distension: No distension Bowel sounds: Normal Tenderness: Nontender Organomegaly: No organomegaly - Back Back: Normal, Nontender - Extremities General upper extremity: Normal inspection, Nontender, Normal color, Normal ROM , Normal temperature General lower extremity: Normal inspection, Nontender, Normal color, Normal ROM , Normal temperature, Normal weight bearing. No: Linda's sign - Neurological Neuro grossly intact: Yes Cognition: Normal Orientation: AAOx4 [place] Coma Scale Eye Opening: Spontaneous [place] Coma Scale Verbal: Oriented Ely Coma Scale Motor: Obeys Commands [place] Coma Scale Total: 15 Speech: Normal Motor strength normal: LUE, RUE, LLE, RLE Sensory: Normal - Psychological Associated symptoms: Normal affect, Normal mood Course - Re-evaluation Re-evalutation: 73-year-old with diabetes as well as polyuria no known history of heart failure who presents with leg swelling and some shortness of breath with exertion. Because of the concern for possible fluid overload in the setting of heart failure will administer diuretic and reassess the patient is comfortable on room air. Patient with unremarkable EKG, negative troponin, non-elevated BNP, clinically asked that she does not demonstrate obvious signs of fluid overload. She has minimal if any pitting edema in the lower extremities. Likely her issues are related to her elevated blood sugars as in the past she says most of the time they are around 200 today her blood glucose is near 400 she notes that recently they have adjusted multiple of her blood glucose medications nearly halving her number of assisted insulin dose. Likely this is a low dose for her. She remains well-appearing throughout her time in the emergency department following 2- troponins and monitoring despite the fact that she was diuresis even though she is not having heart failure she is well-appearing. I believe she would benefit from an increase in her basal insulin dosing. She is not using as needed insulin doses at meals, I do not feel comfortable initiating as needed insulin with sliding scale but I think that this is likely what is coming for her. I did not press the importance of her obtaining follow-up with her primary to initiate treatment of her blood glucose in a more appropriate fashion. She was ambulatory without assistance comfortable on room air prior to discharge. She was discharged in the care of her daughter with return precautions. - Vital Signs Vital signs: Temp Pulse Resp BP Pulse Ox 98.0 F 76 19 128/63 H 95 06/15/18 12:51 06/15/18 12:51 06/15/18 18:02 06/15/18 18:02 06/15/18 18:02 - Laboratory Result Diagrams: 06/15/18 14:00 06/15/18 14:00 Laboratory results interpreted by me: 06/15/18 06/15/18 14:00 16:02 Chloride 97 L BUN 27 H Glucose 397 H POC Glucose 247 H Alkaline Phosphatase 133 H Discharge - Discharge Clinical Impression: Polyuria, Shortness of breath Condition: Good Disposition: HOME, SELF-CARE Instructions: Dependent Edema ([facility]), Diabetes ([facility]) Additional Instructions: You were seen today in the emergency department for your shortness of breath and leg swelling. You had an evaluation including a physical exam as well as an x-ray of your chest and blood markers. YOu do not appear that your heart is been damaged, no markers for heart damage are normal, your chest x-ray was normal. I believe that your fatigue is likely related to your elevated blood glucose. You should take her morning dose of your home insulin from 55-70 units. You should make sure that you are checking your blood sugar at least once a day after making this change. If you begin to have lightheadedness, shortness of breath, worsening chest pain or other symptoms he should return to the emergency room as it may be a more serious condition. Otherwise contact her primary physician for adjustments further related to your insulin dosing. Forms: Elevated Blood Pressure Referrals: TARSHA MAC PA-C [Primary Care Provider] - Follow up as needed
[2018-06-15 14:47] LABS: ALANINE AMINOTRANSFERASE 27 U/L (9-52); ALKALINE PHOSPHATASE 133 U/L (38-126); ANION GAP 14 (5-19); ASPARTATE AMINO TRANSFERASE 19 U/L (14-36); BILIRUBIN,DIRECT 0.2 mg/dL (0.0-0.4); BILIRUBIN,TOTAL 0.6 mg/dL (0.2-1.3); BLOOD UREA NITROGEN 27 mg/dL (7-20); CALCIUM 9.6 mg/dL (8.4-10.2); CARBON DIOXIDE 28 mmol/L (22-30); CHLORIDE 97 mmol/L (98-107); CREATINE KINASE 90 U/L (30-135); GLUCOSE 397 mg/dL (75-110); POTASSIUM 4.8 mmol/L (3.6-5.0); SODIUM 138.9 mmol/L (137-145); TOTAL PROTEIN 7.5 g/dL (6.3-8.2)
[2018-06-15 15:00] LABS: NT PRO BNP 407 pg/mL (5-900); TROPONIN I < 0.012 ng/mL
[2018-06-15] MEDS ORDERED: INSULIN REG, HUMAN 100 UNIT/ML 3 ML VIAL (PYX) SUBCUT ONE (15:26)
[2018-06-15 18:48] VITALS: BP 128/63
--- NOTE | 2018-06-15 22:39 | EKG REPORT ---
SEVERITY:- ABNORMAL ECG - SINUS RHYTHM NONSPECIFIC T ABNORMALITIES, LATERAL LEADS : Confirmed by: Dakota Rivas 15-Jun-2018 22:38:44
== END 2018-06-15 19:06 | disposition home or self-care (01) ==
LOC: ER 12:47
DX: R35.8 Other polyuria (principal); R06.02 Shortness of breath; M25.473 Effusion, unspecified ankle; E78.00 Pure hypercholesterolemia, unspecified; I10 Essential (primary) hypertension; Z86.711 Personal history of pulmonary embolism; I25.2 Old myocardial infarction; Z88.6 Allergy status to analgesic agent; E11.9 Type 2 diabetes mellitus without complications; Z87.442 Personal history of urinary calculi; Z90.49 Acquired absence of other specified parts of digestive tract; Z90.710 Acquired absence of both cervix and uterus; Z96.653 Presence of artificial knee joint, bilateral
CPT/HCPCS: 93005; 99285; 96374; 36415; 82553; 82962; 82550; 85025; 80053; 84484; 83880; 71045; 93010; A9270 ×2; J1940; J1815

== ENCOUNTER 2018-11-23 22:13 | Observation (INO) | payer MEDICARE, MEDICAID ==
[2018-11-23] MEDS ORDERED: ASPIRIN 81 MG TABLET, CHEWABLE PO ONE (22:16)
--- NOTE | 2018-11-23 23:00 | EKG REPORT ---
SEVERITY:- ABNORMAL ECG - SINUS RHYTHM LVH WITH SECONDARY REPOLARIZATION ABNORMALITY : Confirmed by: Christopher Granger MD 23-Nov-2018 22:59:35
--- NOTE | 2018-11-23 23:04 | ER Document Report ---
ED Medical Screen (RME) - General Chief Complaint: Chest Pain Stated Complaint: CHEST PAIN Time Seen by Provider: 11/23/18 22:53 Primary Care Provider: TARSHA MAC PA-C [Primary Care Provider] - Follow up as needed Notes: 73-year-old female with hypertension, coronary artery disease, ACS approximately 1 year ago, NIDDM, RA presents to the emergency department for substernal chest pain that started this morning. She describes it as a burning, it radiates to her left chest, it is constant, and nothing makes it better and there are no provoking factors. She had associated dizziness, diaphoresis, nausea, shortness of breath. Has headache. Of note her blood pressure in triage is 216/108. EXAM: Cardiac: RRR, S1S2 heard, no murmurs, bilateral 2+ radial pulses; Respiratory: BBS CTAB I have greeted and performed a rapid initial assessment of this patient. A comprehensive ED assessment and evaluation of the patient, analysis of test results and completion of medical decision making process will be conducted by an additional ED providers. TRAVEL OUTSIDE OF THE [place] IN LAST 30 DAYS: No - Related Data Allergies/Adverse Reactions: codeine [Codeine] Allergy (Verified 06/15/18 12:50) Facial edema and rash Past Medical History - Past Medical History Cardiac Medical History: Reports: Hx Heart Attack, Hx Hypercholesterolemia, Hx Hypertension, Hx Pulmonary Embolism Denies: Hx Atrial Fibrillation, Hx Congestive Heart Failure, Hx Coronary Artery Disease, Hx Peripheral Vascular Disease, Hx Heart Murmur Pulmonary Medical History: Reports: Hx Asthma - MED PRN, Hx Bronchitis, Hx Pneumonia, Hx Sleep Apnea Denies: Hx COPD, Hx Respiratory Failure, Hx Tuberculosis Neurological Medical History: Denies: Hx Cerebrovascular Accident, Hx Seizures Endocrine Medical History: Reports: Hx Diabetes Mellitus Type 1, Hx Diabetes Mellitus Type 2. Denies: Hx Graves' Disease, Hx Hyperthyroidism, Hx Hypothyroidism Renal/ Medical History: Reports: Hx Kidney Stones. Denies: Hx End Stage Renal Disease, Hx Ovarian Cysts, Hx Peritoneal Dialysis, Hx Pelvic Inflammatory Disease Malignancy Medical History: Denies: Hx Breast Cancer, Hx Cervical Cancer, Hx L eukemia, Hx Lung Cancer, Hx Ovarian Cancer GI Medical History: Reports: Hx Gastroesophageal Reflux Disease, Hx Endoscopy. Denies: Hx Crohn's Disease, Hx Hepatitis, Hx Hiatal Hernia, Hx Irritable Bowel, Hx Liver Failure, Hx Pancreatitis, Hx Ulcer Musculoskeltal Medical History: Reports Hx Arthritis - RA, Denies Hx Fibromyalgia, Denies Hx Multiple Sclerosis, Denies Hx Muscular Dystrophy, Reports Hx Musculoskeletal Deformity - carpal tunnel, knee replacement, Reports Hx Musculoskeletal Trauma, Denies Hx Systemic Lupus Erythematosus Psychiatric Medical History: Reports: Hx Depression, Hx Schizophrenia Denies: Hx Bipolar Disorder, Hx Dementia, Hx Post Traumatic Stress Disorder Traumatic Medical History: Reports: Hx Fractures Infectious Medical History: Denies: Hx Hepatitis, Hx HIV Past Surgical History: Reports: Hx Cardiac Catheterization, Hx Cholecystectomy, Hx Hysterectomy, Hx Orthopedic Surgery - bilateral knee replacement and carpal tunnel on left, Hx Pancreatic Surgery. Denies: Hx Colostomy, Hx Mastectomy, Hx Open Heart Surgery, Hx Pacemaker - Immunizations Hx Diphtheria, Pertussis, Tetanus Vaccination: Yes Physical Exam - Vital signs Vitals: Temp Pulse Resp BP Pulse Ox 98.0 F 87 20 216/108 H 96 11/23/18 22:38 11/23/18 22:38 11/23/18 22:38 11/23/18 22:38 11/23/18 22:38 Course - Vital Signs Vital signs: Temp Pulse Resp BP Pulse Ox 98.0 F 87 20 216/108 H 96 11/23/18 22:38 11/23/18 22:38 11/23/18 22:38 11/23/18 22:38 11/23/18 22:38 Doctor's Discharge - Discharge Referrals: TARSHA MAC PA-C [Primary Care Provider] - Follow up as needed
[2018-11-23] MEDS ORDERED: NITROGLYCERIN 0.4 MG/TAB 25 TAB/BOTTLE SL ONE (23:06)
--- NOTE | 2018-11-23 23:18 | RADIOLOGY REPORT (SQ) ---
EXAM DESCRIPTION: XR CHEST 1 VIEW COMPLETED DATE/TME: 11/23/2018 22:16 EXAM DESCRIPTION: Single view of the chest CLINICAL HISTORY: cp COMPARISON: 06/15/2018 FINDINGS: Single frontal view of the chest. Cardiomediastinal silhouette: Atherosclerotic calcification and tortuosity of thoracic aorta. Heart is not enlarged. Lungs: No consolidation, pneumothorax, or pleural effusion. Bones: No acute osseous abnormality. Upper abdomen: Prior cholecystectomy. IMPRESSION: 1. No acute pulmonary process identified.
--- NOTE | 2018-11-24 00:28 | ER Document Report ---
ED General - General Chief Complaint: Chest Pain Stated Complaint: CHEST PAIN Time Seen by Provider: 11/23/18 22:53 Mode of Arrival: Ambulatory Information source: Patient Notes: This is a 73-year-old female who is an insulin requiring diabetic, hypertensive, coronary artery disease, rheumatoid arthritis ([place]) who presents to the emergency room with right chest pain associated with some shortness of breath and nausea. Patient denies any exacerbating or relieving factors. The pain has improved. She looks quite comfortable at this time. TRAVEL OUTSIDE OF THE [place] IN LAST 30 DAYS: No - HPI Onset: This afternoon Onset/Duration: Gradual Quality of pain: Dull Severity: Moderate Pain Level: 2 Associated symptoms: Chest pain, Shortness of breath. denies: Fever Exacerbated by: Denies Relieved by: Denies Similar symptoms previously: Yes Recently seen / treated by doctor: No - Related Data Allergies/Adverse Reactions: codeine [Codeine] Allergy (Verified 06/15/18 12:50) Facial edema and rash Past Medical History - General Information source: Patient - Social History Smoking Status: Never Smoker Cigarette use (# per day): No Chew tobacco use (# tins/day): No Frequency of alcohol use: None Drug Abuse: None Lives with: Family Family History: Arthritis, CAD, CVA, DM, Hyperlipidemia, Hypertension, Malignancy, Thyroid Disfunction Patient has suicidal ideation: No Patient has homicidal ideation: No - Past Medical History Cardiac Medical History: Reports: Hx Heart Attack, Hx Hypercholesterolemia, Hx Hypertension, Hx Pulmonary Embolism Denies: Hx Atrial Fibrillation, Hx Congestive Heart Failure, Hx Coronary Artery Disease, Hx Peripheral Vascular Disease, Hx Heart Murmur Pulmonary Medical History: Reports: Hx Asthma - MED PRN, Hx Bronchitis, Hx Pneumonia, Hx Sleep Apnea Denies: Hx COPD, Hx Respiratory Failure, Hx Tuberculosis Neurological Medical History: Denies: Hx Cerebrovascular Accident, Hx Seizures Endocrine Medical History: Reports: Hx Diabetes Mellitus Type 1, Hx Diabetes Mellitus Type 2. Denies: Hx Graves' Disease, Hx Hyperthyroidism, Hx Hypothyroidism Renal/ Medical History: Reports: Hx Kidney Stones. Denies: Hx End Stage Renal Disease, Hx Ovarian Cysts, Hx Peritoneal Dialysis, Hx Pelvic Inflammatory Disease Malignancy Medical History: Denies: Hx Breast Cancer, Hx Cervical Cancer, Hx Leukemia, Hx Lung Cancer, Hx Ovarian Cancer GI Medical History: Reports: Hx Gastroesophageal Reflux Disease, Hx Endoscopy. Denies: Hx Crohn's Disease, Hx Hepatitis, Hx Hiatal Hernia, Hx Irritable Bowel, Hx Liver Failure, Hx Pancreatitis, Hx Ulcer Musculoskeletal Medical History: Reports Hx Arthritis - RA, Denies Hx Fibromyalgia, Denies Hx Multiple Sclerosis, Denies Hx Muscular Dystrophy, Reports Hx Musculoskeletal Deformity - carpal tunnel, knee replacement, Reports Hx Musculoskeletal Trauma, Denies Hx Systemic Lupus Erythematosus Psychiatric Medical History: Reports: Hx Depression, Hx Schizophrenia Denies: Hx Bipolar Disorder, Hx Dementia, Hx Post Traumatic Stress Disorder Traumatic Medical History: Reports: Hx Fractures Infectious Medical History: Denies: Hx Hepatitis, Hx HIV Past Surgical History: Reports: Hx Cardiac Catheterization, Hx Cholecystectomy, Hx Hysterectomy, Hx Orthopedic Surgery - bilateral knee replacement and carpal tunnel on left, Hx Pancreatic Surgery. Denies: Hx Colostomy, Hx Mastectomy, Hx Open Heart Surgery, Hx Pacemaker - Immunizations Hx Diphtheria, Pertussis, Tetanus Vaccination: Yes Hx Pneumococcal Vaccination: 12/07/12 Review of Systems - Review of Systems Constitutional: denies: Chills, Fever EENT: No symptoms reported Cardiovascular: See HPI Respiratory: No symptoms reported Gastrointestinal: No symptoms reported Genitourinary: No symptoms reported Female Genitourinary: No symptoms reported Musculoskeletal: No symptoms reported Skin: No symptoms reported Hematologic/Lymphatic: No symptoms reported Neurological/Psychological: No symptoms reported Physical Exam - Vital signs Vitals: Temp Pulse Resp BP Pulse Ox 98.0 F 87 20 216/108 H 96 11/23/18 22:38 11/23/18 22:38 11/23/18 22:38 11/23/18 22:38 11/23/18 22:38 Notes: Physical exam: GENERAL: Patient is alert and active x3, blood pressure is 156/62, pulse of 71, O2 sat is 98% on room air, respiratory rate is 17 HEAD: Atraumatic, normocephalic. EYES: Pupils equal round and reactive to light, extraocular movements intact, sclera anicteric, conjunctiva are normal. ENT: TMs normal, nares patent, oropharynx clear without exudates. Moist mucous membranes. NECK: Normal range of motion, supple without obvious mass or JVD. LUNGS: Breath sounds clear to auscultation bilaterally and equal. No wheezes rales or rhonchi. HEART: Regular rate and rhythm without murmurs, rubs or gallops. ABDOMEN: Soft, normoactive bowel sounds. No tenderness to palpation. No guarding, no rebound. No masses appreciated. EXTREMITIES: Normal range of motion, no pitting or edema. No clubbing or cyanosis. NEUROLOGICAL: Cranial nerves II through XII grossly intact. Normal speech, moving all extremities. PSYCH: Normal mood, normal affect. SKIN: Warm, Dry, normal turgor, no rashes or lesions noted. Course - Vital Signs Vital signs: Temp Pulse Resp BP Pulse Ox 98.1 F 87 23 H 175/75 H 95 11/24/18 02:00 11/23/18 22:38 11/24/18 02:01 11/24/18 02:01 11/24/18 02:01 - Laboratory Result Diagrams: 11/24/18 00:05 11/24/18 00:05 Laboratory results interpreted by me: 11/24/18 11/24/18 11/24/18 00:05 00:05 00:05 Lymphocytes % 45.4 H Sodium 135.6 L Chloride 96 L Est GFR (Non-Af Amer) 55 L Glucose 357 H Alkaline Phosphatase 127 H Urine Protein >=500 H Urine Glucose (UA) >=500 H - Diagnostic Test Radiology reviewed: Image reviewed, Reports reviewed - Chest x-ray shows no infiltrates or effusions - EKG Interpretation by Me Rate: Normal Rhythm: NSR - EKG shows normal sinus rhythm with a ventricular rate of 86, nonspecific T changes. Discharge - Discharge Clinical Impression: Chest pain Condition: Stable Disposition: ADMITTED OBSERVATION Admitting Provider: Elizabeth (Hospitalist) Unit Admitted: Telemetry
[2018-11-24 00:33] LABS: ABSOLUTE EOSINOPHILS # (AUTO) 0.2 10^3/uL (0.0-0.6); ABSOLUTE LYMPHOCYTES (AUTO) 3.5 10^3/uL (0.5-4.7); ABSOLUTE MONOCYTES (AUTO) 0.6 10^3/uL (0.1-1.4); ABSOLUTE NEUT (AUTO) 3.4 10^3/uL (1.7-8.2); BASOPHILS % (AUTO) 0.5 % (0-2); EOSINOPHILS % (AUTO) 2.4 % (0-6); HEMOGLOBIN 12.1 g/dL (12.0-15.5); LYMPHOCYTES % (AUTO) 45.4 % (13-45); MEAN CORPUSCULAR HEMOGLOBIN 28.5 pg (27.0-33.4); MEAN CORPUSCULAR HGB CONC 32.6 g/dL (32.0-36.0); MEAN CORPUSCULAR VOLUME 87 fl (80-97); MONOCYTES % (AUTO) 7.6 % (3-13); PLATELET COUNT 191 10^3/uL (150-450); RED BLOOD COUNT 4.25 10^6/uL (3.72-5.28); RED CELL DISTRIBUTION WIDTH 13.8 % (11.5-14.0); SEGMENTED NEUTROPHILS % (AUTO) 44.1 % (42-78); TOTAL CELLS COUNTED % (AUTO) 100 %; WHITE BLOOD COUNT 7.7 10^3/uL (4.0-10.5)
[2018-11-24 00:40] LABS: APPEARANCE,URINE CLOUDY; BILIRUBIN,URINE NEGATIVE (NEGATIVE); COLOR,URINE YELLOW; GLUCOSE, URINE >=500 mg/dL (NEGATIVE); KETONES,URINE NEGATIVE (NEGATIVE); LEUKOCYTE ESTERASE,URINE NEGATIVE (NEGATIVE); NITRITE,URINE NEGATIVE (NEGATIVE); PROTEIN,URINE >=500 mg/dL (NEGATIVE); URINE SPECIFIC GRAVITY 1.017; UROBILINOGEN,URINE NEGATIVE mg/dL (<2.0)
[2018-11-24 00:45] LABS: ALANINE AMINOTRANSFERASE 26 U/L (9-52); ALBUMIN 3.5 g/dL (3.5-5.0); ALKALINE PHOSPHATASE 127 U/L (38-126); ANION GAP 10 (5-19); ASPARTATE AMINO TRANSFERASE 17 U/L (14-36); BILIRUBIN,DIRECT 0.2 mg/dL (0.0-0.4); BILIRUBIN,TOTAL 0.6 mg/dL (0.2-1.3); BLOOD UREA NITROGEN 20 mg/dL (7-20); CALCIUM 9.1 mg/dL (8.4-10.2); CARBON DIOXIDE 30 mmol/L (22-30); CHLORIDE 96 mmol/L (98-107); GLUCOSE 357 mg/dL (75-110); POTASSIUM 3.9 mmol/L (3.6-5.0); SODIUM 135.6 mmol/L (137-145); TOTAL PROTEIN 6.9 g/dL (6.3-8.2)
[2018-11-24] MEDS ORDERED: INSULIN GLARGINE,HUM.REC.ANLOG 1,000 UNIT/10 ML VIAL SUBCUT ONE (02:17)
--- NOTE | 2018-11-24 03:12 | RADIOLOGY REPORT (SQ) ---
EXAM DESCRIPTION: CT CHEST ANGIOGRAPHY WITHOUT THEN WITH IV CONTRAST COMPLETED DATE/TME: 11/24/2018 01:17 CLINICAL HISTORY: 73 years, Female, cp COMPARISON: Prior CTA chest 10/28/2016 TECHNIQUE: 621 Images stored on PACS. All CT scanners at this facility use dose modulation, iterative reconstruction, and/or weight based dosing when appropriate to reduce radiation dose to as low as reasonably achievable (ALARA). [facility]: Dose Right [facility]: CareDose [facility]: Dose Right [facility]: Teradose 4D [facility]: [employer] LIMITATIONS: None. FINDINGS: The mediastinal vasculature enhances normally. No intraluminal filling defect to suggest pulmonary most. There is no significant contrast accumulation in the thoracic aorta. No convincing evidence for aneurysm. The heart and pericardium are unremarkable. Limited evaluation of the upper abdomen shows fatty infiltrative change to the liver. Postcholecystectomy changes. No pneumothorax. Airspace opacity in the right upper lobe minor adjacent bronchiectasis and scarring, unchanged from the prior exam. Stable anterior right upper lobe nodule measuring 6.6 mm. Stable areas of scarring in the lung bases. IMPRESSION: Negative for acute intrathoracic process. Negative for pulmonary most. Stable opacity in the right upper lobe/apex likely reflecting pleural/parenchymal scar. Stable 6.6 mm nodule of the right upper lobe, likely postinflammatory. Stable scarring in the lung bases TECHNICAL DOCUMENTATION: Quality ID # [id number]: Final reports with documentation of one or more dose reduction techniques (e.g., Automated exposure control, adjustment of the mA and/or kV according to patient size, use of iterative reconstruction technique) copyright 2011 [facility]- All Rights Reserved
[2018-11-24] MEDS ORDERED: DIAZEPAM 5 MG TABLET PO ONE (03:22)
[2018-11-24] MEDS ORDERED: MORPHINE SULFATE 10 MG/ML INJ IV PRN ×4 (05:21→05:31)
[2018-11-24] MEDS ORDERED: ACETAMINOPHEN 325 MG TABLET PO PRN (05:21)
[2018-11-24] MEDS ORDERED: DIAZEPAM 5 MG TABLET PO PRN (05:30)
[2018-11-24] MEDS: HEPARIN SOD (PORCINE) 5,000 UNIT/ML 1 ML SYRINGE SUBCUT SCH ×3 (05:41→22:06)
[2018-11-24] MEDS: PANTOPRAZOLE SODIUM 40 MG TABLET.DR PO SCH (05:44)
--- NOTE | 2018-11-24 06:08 | PDOC H&P ---
History of Present Illness Admission Date/PCP: 11/24/18 03:18 TARSHA MAC PA-C Patient complains of: Chest pain History of Present Illness: TERESA JOEL is a 73 year old female who presented to the emergency room with an acute history of chest pain. Patient admits a gradual onset, moderately intense, nonradiating, dull, right-sided, anterior chest pain in the late afternoon of 11/23/2018. The pain lasted for several hours and resulted in her presenting to the emergency room. During her emergency room course the pain improved slightly after receiving medication but has remained unresolved at the time of my evaluation. She admits mild dyspnea and nausea associated with the pain. She admits prior similar episodes when she had her heart attack. She denies identification of aggravating or ameliorating factors for her chest pain. In the emergency room she was found to have negative cardiac enzymes and an EKG that showed no evidence of acute myocardial ischemia or injury. She was subsequently admitted to the hospital on observation status for further evaluation and treatment. Past Medical History Cardiac Medical History: Reports: Myocardial Infarction, Hyperlipidema, Hypertension, Pulmonary Embolism Denies: Atrial Fibrillation, Congestive Heart Failure, Coronary Artery Disease, Peripheral Vascular Disease, Heart Murmur Pulmonary Medical History: Reports: Asthma - MED PRN, Bronchitis, Pneumonia, Sle ep Apnea Denies: Chronic Obstructive Pulmonary Disease (COPD), Respiratory Failure, Tuberculosis EENT Medical History: Denies: Cataracts, Eyes - Prescription eyeglasses, Ears - Hearing aids Neurological Medical History: Denies: Hemorrhagic CVA, Ischemic CVA, Seizures Endocrine Medical History: Reports: Diabetes Mellitus Type 2, Obesity Denies: Diabetes Mellitus Type 1, Hyperthyroidism, Hypothyroidism Renal/ Medical History: Denies: Chronic Kidney Disease, Nephrolithiasis Malignancy Medical History: Denies: Breast Cancer, Cervical Cancer, Leukemia, Lung Cancer, Ovarian Cancer GI Medical History: Reports: Gastroesophageal Reflux Disease Denies: Crohn's Disease, Hepatitis, Hiatal Hernia Musculoskeltal Medical History: Reports: Arthritis - Rheumatoid arthritis Denies: Fibromyalgia, Gout Skin Medical History: Denies: Eczema, Psoriasis Psychiatric Medical History: Reports: Depression Denies: Bipolar Disorder, Dementia, Post Traumatic Stress Disorder Traumatic Medical History: Reports: None Hematology: Reports: Anemia - long ago Denies: Hemophilia, Bleeding Tendencies Infectious Medical History: Reports: None Denies: HIV Past Surgical History Past Surgical History: Reports: Cardiac Catheterization - Nonsurgical multiple small vessel coronary artery disease detected., Cholecystectomy, Hysterectomy, Orthopedic Surgery - bilateral knee replacement and carpal tunnel on left Social History Information Source: Patient Lives with: Family Smoking Status: Never Smoker Frequency of Alcohol Use: None Hx Recreational Drug Use: No Drugs: None Hx Prescription Drug Abuse: No - Advance Directive Resuscitation Status: Full Code Surrogate healthcare decision maker:: Panda Joel her son Family History Family History: Arthritis, CAD, CVA, DM, Hyperlipidemia, Hypertension, Malignancy, Thyroid Disfunction Parental Family History Reviewed: Yes Children Family History Reviewed: No Sibling(s) Family History Reviewed.: Yes Medication/Allergy Home Medications: Albuterol Sulfate [Ventolin 0.083% Neb 2.5 mg/3 ml Ampul] 1 vial NEB Q4 03/10/17 Amlodipine Besylate 2.5 mg PO DAILY 03/10/17 Bupropion HCl [Wellbutrin Sr 150 mg Tablet] 1 tab PO DAILY 03/10/17 Cetirizine HCl [Allergy Relief] 10 mg PO DAILY 03/10/17 Diazepam [Valium] 10 mg PO TIDP PRN 03/10/17 Esomeprazole Magnesium [Nexium] 40 mg PO DAILY 03/10/17 Etanercept [Enbrel] 25 mg SQ .WEEKLY 03/10/17 Insulin Glargine,Hum.rec.anlog [Lantus] 34 unit SQ BID 03/10/17 Losartan Potassium 50 mg PO DAILY 03/10/17 Metoprolol Succinate [Toprol Xl 50 mg Tab.sr] 50 mg PO DAILY 03/10/17 Difluprednate [Durezol] 1 drop OP .3 & 8 PM TODAY 03/16/17 Moxifloxacin HCl [Vigamox] 1 drop OP .3 & 8 PM TODAY 03/16/17 Nepafenac [Ilevro] 1 drop OP .3 & 8 PM TODAY 03/16/17 Brimonidine Tartrate/Timolol [Combigan 0.2%-0.5% Eye Drops] 1 drop OU DAILY 03/17/17 Cephalexin Monohydrate [Keflex 500 mg Capsule] 500 mg PO BID #10 capsule 04/16/17 Meclizine HCl [Antivert 25 mg Tablet] 25 mg PO TID PRN #20 tablet 04/16/17 Allergies/Adverse Reactions: codeine [Codeine] Allergy (Verified 06/15/18 12:50) Facial edema and rash Review of Systems Constitutional: ABSENT: chills, fever(s) Eyes: ABSENT: visual disturbances, other - Ocular pain Ears: ABSENT: hearing changes, other - Ear pain Nose, Mouth, and Throat: ABSENT: mouth pain, sore throat Cardiovascular: PRESENT: as per HPI, chest pain. ABSENT: dyspnea on exertion, edema, orthropnea, palpitations Respiratory: PRESENT: as per HPI, dyspnea. ABSENT: cough Gastrointestinal: PRESENT: as per HPI, nausea. ABSENT: abdominal pain, constipation, diarrhea, vomiting Genitourinary: ABSENT: dysuria, hematuria Musculoskeletal: PRESENT: joint swelling - Chronic with rheumatoid arthritis. ABSENT: back pain, muscle weakness Integumentary: ABSENT: pruritus, rash Neurological: ABSENT: confusion, convulsions, focal weakness, memory loss, syncope Psychiatric: ABSENT: anxiety, depression Endocrine: ABSENT: cold intolerance, heat intolerance Hematologic/Lymphatic: ABSENT: easy bleeding, easy bruising Physical Exam Vital Signs: Temp Pulse Resp BP Pulse Ox 97.7 F 80 19 156/99 H 90 L 11/24/18 04:15 11/24/18 04:15 11/24/18 04:15 11/24/18 04:15 11/24/18 04:15 Intake & Output 11/22/18 11/23/18 11/24/18 23:59 23:59 23:59 Weight 97.9 kg 98.2 kg General appearance: PRESENT: no acute distress, cooperative, obese Head exam: PRESENT: atraumatic, normocephalic Eye exam: ABSENT: conjunctival injection, scleral icterus Ear exam: PRESENT: normal external ear exam. ABSENT: bleeding, drainage Mouth exam: PRESENT: dry mucosa, neck supple Neck exam: ABSENT: thyromegaly, tracheal deviation Respiratory exam: PRESENT: chest wall tenderness - Right costal margin tenderness to palpation faithfully reproduces the pain of chief complaint, clear to auscultation brenda, symmetrical, unlabored Cardiovascular exam: PRESENT: RRR. ABSENT: clicks, gallop, rubs Pulses: PRESENT: normal radial pulses, normal dorsalis pedis pul Vascular exam: PRESENT: normal capillary refill. ABSENT: pallor GI/Abdominal exam: PRESENT: normal bowel sounds - [id number], soft Rectal exam: PRESENT: deferred Extremities exam: PRESENT: other - Changes consistent with rheumatoid arthritis noted in bilateral hands.. ABSENT: pedal edema Musculoskeletal exam: ABSENT: deformity, dislocation Neurological exam: PRESENT: alert, oriented to person, oriented to place, oriented to time, oriented to situation, CN II-XII grossly intact. ABSENT: motor sensory deficit Psychiatric exam: PRESENT: appropriate affect, normal mood Skin exam: PRESENT: dry, intact, warm. ABSENT: jaundice, rash, urticaria Results Laboratory Results: 11/24/18 00:05 11/24/18 00:05 11/24/18 11/24/18 11/24/18 00:05 00:05 00:05 WBC 7.7 RBC 4.25 Hgb 12.1 Hct 37.0 MCV 87 MCH 28.5 MCHC 32.6 RDW 13.8 Plt Count 191 Seg Neutrophils % 44.1 Lymphocytes % 45.4 H Monocytes % 7.6 Eosinophils % 2.4 Basophils % 0.5 Absolute Neutrophils 3.4 Absolute Lymphocytes 3.5 Absolute Monocytes 0.6 Absolute Eosinophils 0.2 Absolute Basophils 0.0 Sodium 135.6 L Potassium 3.9 Chloride 96 L Carbon Dioxide 30 Anion Gap 10 BUN 20 Creatinine 0.99 Est GFR ( Amer) > 60 Est GFR (Non-Af Amer) 55 L Glucose 357 H Calcium 9.1 Total Bilirubin 0.6 AST 17 ALT 26 Alkaline Phosphatase 127 H Total Protein 6.9 Albumin 3.5 Urine Color YELLOW Urine Appearance CLOUDY Urine pH 5.0 Ur Specific [place] 1.017 Urine Protein >=500 H Urine Glucose (UA) >=500 H Urine Ketones NEGATIVE Urine Blood NEGATIVE Urine Nitrite NEGATIVE Ur Leukocyte Esterase NEGATIVE Urine WBC (Auto) 14 Urine RBC (Auto) 132 11/24/18 00:05 Troponin I < 0.012 Impressions: Chest X-Ray 11/23/18 22:16 IMPRESSION: 1. No acute pulmonary process identified. Chest/Abdomen CTA 11/24/18 01:17 IMPRESSION: Negative for acute intrathoracic process. Negative for pulmonary most. Stable opacity in the right upper lobe/apex likely reflecting pleural/parenchymal scar. Stable 6.6 mm nodule of the right upper lobe, likely postinflammatory. Stable scarring in the lung bases TECHNICAL DOCUMENTATION: Quality ID # 436: Final reports with documentation of one or more dose reduction techniques (e.g., Automated exposure control, adjustment of the mA and/or kV according to patient size, use of iterative reconstruction technique) copyright 2011 [employer] [facility] [employer] [employer]- All Rights Reserved Assessment and Plan - Diagnosis (1) Chest pain Qualifiers: Chest pain type: unspecified Qualified Code(s): R07.9 - Chest pain, unspecified Is this a current diagnosis for this admission?: Yes Plan: Patient's chest pain will be treated with morphine sulfate 2 to 4 mg IV every 2 hours as needed. She will have serial cardiac enzymes and EKGs performed to evaluate her for myocardial ischemia or injury. Patient's last cardiac catheterization was one year ago and determined that she had multiple small vessel coronary artery disease that was nonsurgical in nature and medical t reatment was recommended. Since pain is reproducible is highly unlikely that it is related to a coronary artery disease. If her cardiac enzymes and EKG are negative at 0800 I would recommend patient be discharged to home and follow-up with her primary care provider for further evaluation of her noncardiac chest pain. Consideration for treatment with a nonsteroidal anti-inflammatory or other analgesic agent will be left to her daytime hospitalist. (2) Coronary artery disease Qualifiers: Coronary Disease-Associated Artery/Lesion type: [place] artery [place] vs. transplanted heart: [place] heart Associated angina: angina presence unspecified Qualified Code(s): I25.10 - Atherosclerotic heart disease of [place] coronary artery without angina pectoris Is this a current diagnosis for this admission?: Yes Plan: She will have serial cardiac enzymes and EKGs performed to evaluate her for myocardial ischemia or injury. Patient's last cardiac catheterization was one year ago and determined that she had multiple small vessel coronary artery disease that was nonsurgical in nature and medical treatment was recommended. (3) Diabetes mellitus type 2 in obese Is this a current diagnosis for this admission?: Yes Plan: Patient will be continued on her usual diabetic therapy. She will also be continued on a diabetic diet and that hemoglobin A1c will be obtained to evaluate the efficacy of her current therapy. (4) Hypertension Qualifiers: Hypertension type: essential hypertension Qualified Code(s): I10 - Essential (primary) hypertension Is this a current diagnosis for this admission?: Yes Plan: Patient will be continued on her usual antihypertensive medications. Her blood pressure be monitored closely during her hospital course with adjustments in treatment made as needed. - Time Time Spent with patient: 25-34 minutes Medications reviewed and adjusted accordingly: Yes Anticipated discharge: Home Within: within 24 hours - Inpatient Certification Based on my medical assessment, after consideration of the patient's comorbidities, presenting symptoms, or acuity I expect that the services needed warrant INPATIENT care.: No I certify that my determination is in accordance with my understanding of Medicare's requirements for reasonable and necessary INPATIENT services [42 CFR 412.3e].: No Medical Necessity: Significant Comorbidiites Make Outpatient Treatment Too Risky, Need Close Monitoring Due to Risk of Patient Decompensation, Need For Continuous Telemetry Monitoring, Risk of Complication if Not Cared For in Hospital
[2018-11-24 06:29] LABS: CREATINE KINASE MB 2.37 ng/mL (<4.55)
[2018-11-24 06:30] LABS: TROPONIN I < 0.012 ng/mL
[2018-11-24] MEDS: AMLODIPINE BESYLATE 2.5 MG TABLET PO SCH (09:14)
[2018-11-24] MEDS: METOPROLOL SUCCINATE 50 MG TAB.SR.24H PO SCH (09:14)
[2018-11-24] MEDS: LOSARTAN POTASSIUM 50 MG TABLET PO SCH (09:14)
--- NOTE | 2018-11-24 14:57 | Progress Note ---
Provider Note Provider Note: She was admitted for chest pain. Troponins are negative thus far. We will monitor overnight and if negative will likely discharge her home in the morning. She said she had a negative cardiac catheterization last summer in [place], performed by Dr. Munoz. Apparently had some very small vessel atherosclerosis, but nothing that could have a stent placed. She was actually able to provide a pretty good history about this. Currently pain-free.
--- NOTE | 2018-11-24 16:30 | EKG REPORT ---
SEVERITY:- ABNORMAL ECG - SINUS RHYTHM PROBABLE LVH WITH SECONDARY REPOL ABNRM : Confirmed by: Christopher Granger MD 24-Nov-2018 16:29:43
[2018-11-24] MEDS ORDERED: DEXTROSE 40% GEL 15 GM TUBE X 2 PO PRN (17:30)
[2018-11-24] MEDS ORDERED: GLUCAGON,HUMAN RECOMB 1 MG INJ IM PRN (17:30)
[2018-11-24] MEDS ORDERED: DEXTROSE 50%-WATER SYRINGE 25 GM/50 ML DOSE IV PRN (17:30)
[2018-11-24] MEDS ORDERED: DEXTROSE 50%-WATER SYRINGE 12.5 GM/25 ML DOSE IV PRN (17:30)
[2018-11-24] MEDS ORDERED: DEXTROSE 40% GEL 15 GM TUBE PO PRN (17:30)
[2018-11-24] MEDS: INSULIN LISPRO 100 UNIT/ML 3 ML VIAL SUBCUT SCH ×2 (18:10→22:05)
[2018-11-24] MEDS ORDERED: INSULIN LISPRO 100 UNIT/ML 3 ML VIAL SUBCUT SCH (22:00)
[2018-11-24] MEDS ORDERED: INSULIN GLARGINE,HUM.REC.ANLOG 1,000 UNIT/10 ML VIAL SUBCUT SCH (22:00)
[2018-11-25] MEDS: PANTOPRAZOLE SODIUM 40 MG TABLET.DR PO SCH (05:41)
[2018-11-25] MEDS: HEPARIN SOD (PORCINE) 5,000 UNIT/ML 1 ML SYRINGE SUBCUT SCH ×2 (05:41→13:13)
[2018-11-25] MEDS: INSULIN LISPRO 100 UNIT/ML 3 ML VIAL SUBCUT SCH ×2 (07:58→12:03)
[2018-11-25] MEDS: METOPROLOL SUCCINATE 50 MG TAB.SR.24H PO SCH (10:03)
[2018-11-25] MEDS: LOSARTAN POTASSIUM 50 MG TABLET PO SCH (10:03)
[2018-11-25] MEDS: AMLODIPINE BESYLATE 2.5 MG TABLET PO SCH (10:04)
[2018-11-25] MEDS ORDERED: PANTOPRAZOLE SODIUM 40 MG TABLET.DR PO ONE (10:15)
[2018-11-25 13:39] VITALS: BP 176/88
--- NOTE | 2018-11-25 14:59 | PDOC DISCHARGE SUMMARY ---
General - Admit/Disc Date/PCP Admission Date/Primary Care Provider: 11/24/18 03:18 TARSHA MAC PA-C Discharge Date: 11/25/18 - Discharge Diagnosis (1) Chest pain Is this a current diagnosis for this admission?: Yes Summary: Her troponins were negative x3. She had a negative heart cath less than a year ago. She will continue on her home medications. She was pain-free at time of discharge. (2) Diabetes mellitus type 2 in obese Is this a current diagnosis for this admission?: Yes Summary: She will continue on her usual home medications. (3) Hypertension Is this a current diagnosis for this admission?: Yes Summary: She will continue on her home medications. Close follow-up was recommended to make sure her blood pressures are improving. (4) Obesity (BMI 30.0-34.9) Is this a current diagnosis for this admission?: Yes Summary: Strongly encouraged lifestyle modification - Additional Information Resuscitation Status: Full Code Discharge Diet: Cardiac, Diabetic Discharge Activity: Activity As Tolerated Home Medications: Albuterol Sulfate [Ventolin Hfa 8 gm Mdi (1 Mdi/ER Disp)] 2 puff IH Q12HP PRN 11/24/18 Amitriptyline HCl [Elavil 10 mg Tablet] 10 mg PO HSP PRN 11/24/18 Bupropion HCl [Wellbutrin Xl 150 mg 24hr Tablet] 300 mg PO DAILY 11/24/18 Cetirizine HCl [Zyrtec 10 mg Tablet] 1 tab PO DAILY 11/24/18 Cyclosporine 0.05% Oph Emulsio [Restasis 0.05% Oph Emulsion Pf 0.4 ml] 1 drop OU BID 11/24/18 Diazepam [Valium] 10 mg PO HSP PRN 11/24/18 Esomeprazole Magnesium [Nexium] 20 mg PO DAILY 11/24/18 Etanercept [Enbrel] 50 mg SQ SA 11/24/18 Fluticasone Propionate [Flonase Nasal [place] 50 Mcg/[place] 16 gm] 1 spray NASL DAILY 11/24/18 Glipizide [Glucotrol Xl 5 mg Tab.er] 5 mg PO DAILY 11/24/18 Insulin Glargine,Hum.rec.anlog [Lantus Insulin 100 Unit/1 ml 10 ml] 55 unit SUBCUT BID 11/24/18 Losartan Potassium [Cozaar 50 mg Tablet] 50 mg PO DAILY 11/24/18 Metoprolol Succinate [Toprol Xl 50 mg Tab.sr] 50 mg PO DAILY 11/24/18 Naproxen [Naprosyn] 500 mg PO DAILYP PRN 11/24/18 Sertraline HCl [Zoloft 50 mg Tablet] 50 mg PO DAILY 11/24/18 Timolol Maleate 1 drop OS BID 11/24/18 History of Present Illness History of Present Illness: TERESA JOEL is a 73 year old female who presented to the emergency room with an acute history of chest pain. Patient admits a gradual onset, moderately intense, nonradiating, dull, right-sided, anterior chest pain in the late afternoon of 11/23/2018. The pain lasted for several hours and resulted in her presenting to the emergency room. During her emergency room course the pain improved slightly after receiving medication but has remained unresolved at the time of my evaluation. She admits mild dyspnea and nausea associated with the pain. She admits prior similar episodes when she had her heart attack. She denies identification of aggravating or ameliorating factors for her chest pain. In the emergency room she was found to have negative cardiac enzymes and an EKG that showed no evidence of acute myocardial ischemia or injury. She was subsequently admitted to the hospital on observation status for further evaluation and treatment. Hospital Course Hospital Course: Her troponins were all negative. She had a heart cath done by Dr. Munoz less than a year ago in [place]. She was pain-free. She will resume her usual home medication she was discharged in good condition. Physical Exam Vital Signs: Temp Pulse Resp BP Pulse Ox 97.9 F 78 16 176/88 H 95 11/25/18 13:35 11/25/18 13:35 11/25/18 13:35 11/25/18 13:35 11/25/18 13:35 Intake & Output 11/24/18 11/25/18 11/26/18 06:59 06:59 06:59 Intake Total 125 1598 740 Output Total 3 Balance 125 1598 737 Weight 98.2 kg 99.9 kg General appearance: PRESENT: no acute distress, cooperative, disheveled, morbidly obese Teeth exam: PRESENT: poor dentation Respiratory exam: PRESENT: clear to auscultation brenda, symmetrical, unlabored. ABSENT: accessory muscle use, crackles, prolonged expiratory phas, rhonchi, tachypnea, wheezes Cardiovascular exam: PRESENT: RRR, +S1, +S2 Pulses: PRESENT: normal carotid pulses Vascular exam: PRESENT: normal capillary refill GI/Abdominal exam: PRESENT: normal bowel sounds, soft. ABSENT: distended, guarding, rebound, tenderness Extremities exam: ABSENT: clubbing, pedal edema Musculoskeletal exam: PRESENT: normal inspection. ABSENT: deformity Neurological exam: PRESENT: alert, awake, oriented to person, oriented to place, oriented to time, oriented to situation Psychiatric exam: PRESENT: appropriate affect, normal mood Skin exam: PRESENT: dry, warm Results Laboratory Results: 11/24/18 00:05 11/24/18 00:05 11/24/18 11/24/18 11/24/18 00:05 05:46 05:46 Creatine Kinase 95 CK-MB (CK-2) 2.37 Troponin I < 0.012 < 0.012 11/25/18 07:49 Creatine Kinase CK-MB (CK-2) Troponin I < 0.012 Impressions: Chest X-Ray 11/23/18 22:16 IMPRESSION: 1. No acute pulmonary process identified. Chest/Abdomen CTA 11/24/18 01:17 IMPRESSION: Negative for acute intrathoracic process. Negative for pulmonary most. Stable opacity in the right upper lobe/apex likely reflecting pleural/parenchymal scar. Stable 6.6 mm nodule of the right upper lobe, likely postinflammatory. Stable scarring in the lung bases TECHNICAL DOCUMENTATION: Quality ID # 436: Final reports with documentation of one or more dose reduction techniques (e.g., Automated exposure control, adjustment of the mA and/or kV according to patient size, use of iterative reconstruction technique) copyright 2011 [employer]- All Rights Reserved Qualifiers - * PATIENT BEING DISCHARGED WITH ANY OF THE FOLLOWING DIAGNOSIS: No Acute Heart Failure Is this a Heart Failure Patient?: No Plan Time Spent: Less than 30 Minutes
--- NOTE | 2018-11-25 15:15 | EKG REPORT ---
SEVERITY:- ABNORMAL ECG - SINUS RHYTHM NONSPECIFIC T ABNORMALITIES, ANT-LAT LEADS : Confirmed by: Christopher Granger MD 25-Nov-2018 15:14:56
== END 2018-11-25 13:49 | disposition home or self-care (01) ==
LOC: ER 22:13 → EH 11-24 03:18 → 4N 11-24 04:10
PROVIDERS: ADMIT Emergency Medicine; ATTEND Emergency Medicine
DX: R07.89 Other chest pain (principal); E11.9 Type 2 diabetes mellitus without complications; I10 Essential (primary) hypertension; I25.10 Atherosclerotic heart disease of native coronary artery without angina pectoris; M06.9 Rheumatoid arthritis, unspecified; R06.00 Dyspnea, unspecified; R11.0 Nausea; E66.01 Morbid (severe) obesity due to excess calories; J45.909 Unspecified asthma, uncomplicated; R51 Headache; R91.1 Solitary pulmonary nodule; I25.2 Old myocardial infarction; Z79.4 Long term (current) use of insulin; Z79.899 Other long term (current) drug therapy; Z86.711 Personal history of pulmonary embolism; Z90.49 Acquired absence of other specified parts of digestive tract; Z82.49 Family history of ischemic heart disease and other diseases of the circulatory system; Z98.890 Other specified postprocedural states; Z87.442 Personal history of urinary calculi
CPT/HCPCS: 93005 ×3; 99285; 36415 ×2; 82553; 82962 ×2; 82550; 85025; 80053; 81001; 84484 ×2; 83036; 71045; 71275; 93010 ×3; G0378 ×2; A9270 ×11; J1644; J2270; J3490 ×3; J1815

== ENCOUNTER 2019-04-25 08:45 | Day surgery (SDC) | payer MEDICARE, MEDICAID ==
[~2019-04-25 08:45] MED LIST changes: +CEFAZOLIN 1 GM/D5W RTU 1 GM/50 ML RTUPB IV PRN; -KETOROLAC TROMETHAMINE 0.45% 4 DROP/0.4 ML DROPERETTE OD PRN; +LACTATED RINGERS 1000 ML IV PRN; +LIDOCAINE 0.5% INJ-PF (5 MG/ML) 50 ML SDV SUBCUT PRN
[2019-04-25] MEDS ORDERED: POLYMYXIN B SULFATE INJ 500000 UNIT VIAL ONE (09:04)
[2019-04-25] MEDS ORDERED: BUPIVACAINE HCL 0.5 % INJ/PF 30 ML SDV ONE (09:04)
[2019-04-25] MEDS ORDERED: BACITRACIN INJ 50,000 UNIT VIAL ONE (09:05)
[2019-04-25] MEDS ORDERED: NORMAL SALINE INJ/PF 0.9% 10 ML SDV ONE (09:05)
[2019-04-25] MEDS ORDERED: LIDOCAINE 2% INJ (20 MG/ML) 20 ML MDV ONE (09:05)
[2019-04-25] MEDS ORDERED: ONDANSETRON HCL INJ/PF 4 MG/2 ML SDV ONE (09:19)
[2019-04-25] MEDS ORDERED: FENTANYL CITRATE INJ/PF 100 MCG/2 ML AMPUL ONE (09:19)
[2019-04-25] MEDS ORDERED: MIDAZOLAM 2 MG/2 ML INJ ONE (09:19)
[2019-04-25] MEDS ORDERED: PROPOFOL INJ 200 MG/20 ML VIAL IV ONE (09:19)
--- NOTE | 2019-04-25 10:50 | Operative Report ---
Operative Report DATE OF SURGERY: 04/25/19 PREOPERATIVE DIAGNOSIS: Soft tissue mass right hallux. POSTOPERATIVE DIAGNOSIS: Soft tissue mass right hallux. OPERATION: Excision of mass plantar aspect right hallux. SURGEON: MARYCHUY GUILLEN WANT AD CLERK: ALMA LIGHT ANESTHESIA: LMAC TISSUE REMOVED OR ALTERED: Soft tissue mass right hallux COMPLICATIONS: None ESTIMATED BLOOD LOSS: Less than 1 mL INTRAOPERATIVE FINDINGS: Encapsulated soft tissue mass PROCEDURE: Following induction of IV regional local anesthesia the right foot and leg were prepped and draped in the usual sterile manner. A pneumatic tourniquet was placed around the right ankle and inflated to 250 mmHg after exsanguination of limb via Esmarch bandage. The following surgical procedure was then performed: Excision of soft tissue mass right hallux Attention was directed to the plantar aspect of the right hallux where an approximately 2 cm linear incision was made. The incision was deepened via blunt dissection this brought into view the soft tissue mass. Utilizing iris scissors the soft tissue mass was removed in toto from the wound. The mass measured approximately 1-1/2 cm x 2 cm and appeared to have yellow nodules inside it. The wound was inspected and it was noted that the remaining soft tissue was normal in appearance. The subcutaneous tissue was then coaptated and maintained utilizing simple interrupted sutures of 4-0 Vicryl. The skin was then coaptated and maintained utilizing horizontal mattress sutures of 5-0 nylon. A dry sterile dressing was then applied consisting of Alarcon silk, 4 x 4's, conform, Kerlix, and Coban. All digits are warm and viable and the patien t was transferred to the recovery room.
--- NOTE | 2019-04-25 10:54 | PDOC DISCHARGE SUMMARY ---
Discharge Summary-[facility] Discharge Summary: Date of admission: April 25, 2019 Date of discharge: April 25, 2019 Preoperative diagnosis: soft tissue mass right hallux. Surgical procedure: Excision of mass right hallux. Postoperative diagnosis: Soft tissue mass right hallux. Surgeon: Iesha Sloan D.P.M. Animal Science Instructor: Rojas Cooley D.P.M. Patient was admitted to surgery care with a chief complaint of a painful lump under her right big toe. This site had been x-rayed, ultrasound, and MRI. The MRI stated that there was a solid mass at the plantar aspect of the right hallux. The patient desired to have this painful mass surgically removed and underwent the above surgical procedure. She was discharged with an ice pack, a surgical shoe, postoperative instructions, and postoperative prescriptions for [place] 5/325 mg #20 and Phenergan 25 mg #10. She was given a follow-up appointment in the doctor's office patient. The patient was discharged from surgical care.
== END 2019-04-25 11:14 | disposition home or self-care (01) ==
LOC: SC 08:45
PROVIDERS: ATTEND Podiatrist Foot Surgery
DX: D21.21 Benign neoplasm of connective and other soft tissue of right lower limb, including hip (principal); I10 Essential (primary) hypertension; E11.9 Type 2 diabetes mellitus without complications; E78.5 Hyperlipidemia, unspecified; Z79.4 Long term (current) use of insulin; Z79.899 Other long term (current) drug therapy
CPT/HCPCS: 82962; 88305 ×2; 88312 ×2; 00400; 28039; J2250; J3490 ×5; J0690; J3010; J2405; J2704; 400

== ENCOUNTER 2019-06-26 19:08 | Emergency (ER) | payer MEDICARE, MEDICAID ==
[2019-06-26 21:30] LABS: AMORPHOUS SEDIMENT,URINE TRACE /HPF; APPEARANCE,URINE SLIGHTLY-CLOUDY; BILIRUBIN,URINE NEGATIVE (NEGATIVE); COLOR,URINE YELLOW; GLUCOSE, URINE NEGATIVE (NEGATIVE); KETONES,URINE NEGATIVE (NEGATIVE); LEUKOCYTE ESTERASE,URINE LARGE (NEGATIVE); NITRITE,URINE NEGATIVE (NEGATIVE); PROTEIN,URINE 100 mg/dL (NEGATIVE); URINE SPECIFIC GRAVITY 1.012; UROBILINOGEN,URINE NEGATIVE mg/dL (<2.0)
[2019-06-26] MEDS ORDERED: DEXAMETHASONE SOD PHOS INJ 10 MG/1 ML VIAL IM ONE (23:30)
[2019-06-26] MEDS ORDERED: CEPHALEXIN 500 MG CAPSULE PO ONE (23:30)
[2019-06-26] MEDS ORDERED: IBUPROFEN 600 MG TABLET PO ONE (23:31)
--- NOTE | 2019-06-26 23:33 | ER Document Report ---
HPI - HPI Time Seen by Provider: 06/26/19 23:22 Pain Level: 5 Context: Patient is a 74-year-old female who presents to the emergency department with a chief complaint of right sciatic nerve pain. Patient states that she went to the bathroom this morning and after she went to the bathroom her sciatic nerve pain was exacerbated. She denies any loss of bowel or bladder function. Patient states that she has had problems with her sciatic nerve for the past 6 years. She is currently on Lyrica. Denies any fever, body aches, chills. She does have a little bit of lower abdominal tenderness. Denies any dysuria. - CONSTITUTIONAL Constitutional: DENIES: Fever, Chills - EENT EENT: DENIES: Sore Throat, Ear Pain, Eye problems - NEURO Neurology: DENIES: Headache, Weakness, Vision blurred, Dizzinesss / Vertigo - CARDIOVASCULAR Cardiovascular: DENIES: Chest pain - RESPIRATORY Respiratory: DENIES: Trouble Breathing, Coughing - GASTROINTESTINAL Gastrointestinal: DENIES: Abdominal Pain, Black / Bloody Stools - URINARY Urinary: DENIES: Dysuria, Urgency - REPRODUCTIVE Reproductive: DENIES: : - MUSCULOSKELETAL Musculoskeletal: REPORTS: Extremity pain - left hip pain Past Medical History - Social History Smoking Status: Never Smoker Chew tobacco use (# tins/day): No Frequency of alcohol use: None Drug Abuse: None Family History: Arthritis, CAD, CVA, DM, Hyperlipidemia, Hypertension, Malignancy, Thyroid Disfunction Patient has suicidal ideation: No Patient has homicidal ideation: No - Past Medical History Cardiac Medical History: Reports: Hx Heart Attack - 2018, Hx Hypercholesterolemia, Hx Hypertension, Hx Pulmonary Embolism Denies: Hx Atrial Fibrillation, Hx Congestive Heart Failure, Hx Coronary Artery Disease, Hx Peripheral Vascular Disease, Hx Heart Murmur Pulmonary Medical History: Reports: Hx Asthma - MED PRN, Hx Bronchitis, Hx Pneumonia, Hx Sleep Apnea Denies: Hx COPD, Hx Respiratory Failure, Hx Tuberculosis Neurological Medical History: Denies: Hx Cerebrovascular Accident, Hx Seizures, Hx Parkinson's Disease Endocrine Medical History: Reports: Hx Diabetes Mellitus Type 2. Denies: Hx Diabetes Mellitus Type 1, Hx Graves' Disease, Hx Hyperthyroidism, Hx Hypothyroidism Renal/ Medical History: Reports: Hx Kidney Stones. Denies: Hx End Stage Renal Disease, Hx Ovarian Cysts, Hx Peritoneal Dialysis, Hx Pelvic Inflammatory Disea se Malignancy Medical History: Denies: Hx Breast Cancer, Hx Cervical Cancer, Hx Leukemia, Hx Lung Cancer, Hx Ovarian Cancer GI Medical History: Reports: Hx Gastroesophageal Reflux Disease, Hx Endoscopy. Denies: Hx Crohn's Disease, Hx Hepatitis, Hx Hiatal Hernia, Hx Irritable Bowel, Hx Liver Failure, Hx Pancreatitis, Hx Ulcer Musculoskeletal Medical History: Reports Hx Arthritis - Rheumatoid arthritis, Denies Hx Fibromyalgia, Denies Hx Gout, Denies Hx Multiple Sclerosis, Denies Hx Muscular Dystrophy, Reports Hx Musculoskeletal Deformity - carpal tunnel, knee replacement, Reports Hx Musculoskeletal Trauma, Denies Hx Systemic Lupus Erythematosus Skin Medical History: Denies Hx Eczema, Denies Hx Psoriasis Psychiatric Medical History: Reports: Hx Depression, Hx Schizophrenia Denies: Hx Bipolar Disorder, Hx Dementia, Hx Post Traumatic Stress Disorder Traumatic Medical History: Reports: Hx Fractures Infectious Medical History: Denies: Hx Hepatitis, Hx HIV Past Surgical History: Reports: Hx Cardiac Catheterization - Nonsurgical multiple small vessel coronary artery disease detected., Hx Cholecystectomy, Hx Hysterectomy, Hx Orthopedic Surgery - bilateral knee replacement and carpal tunnel on left, Hx Pancreatic Surgery. Denies: Hx Colostomy, Hx Mastectomy, Hx Open Heart Surgery, Hx Pacemaker - Immunizations Hx Diphtheria, Pertussis, Tetanus Vaccination: Yes Hx Pneumococcal Vaccination: 12/07/12 Vertical Provider Document - CONSTITUTIONAL Agree With Documented VS: Yes Exam Limitations: No Limitations General Appearance: No Apparent Distress - INFECTION CONTROL TRAVEL OUTSIDE OF THE [place] IN LAST 30 DAYS: No - HEENT HEENT: Atraumatic, Normocephalic, PERRLA - NECK Neck: Normal Inspection - RESPIRATORY Respiratory: Breath Sounds Normal, No Respiratory Distress - CARDIOVASCULAR Cardiovascular: Regular Rate, Regular Rhythm Pulses: Normal: Radial - GI/ABDOMEN Gastrointestinal: Abdomen Tender - Mid lower - MUSCULOSKELETAL/EXTREMETIES Musculoskeletal/Extremeties: FROM, Tender - Right buttock - NEURO Level of Consciousness: Awake, Alert, Appropriate, Agitated Motor/Sensory: No Sensory Deficit - DERM Integumentary: Warm, Dry, No Rash Course - Re-evaluation Re-evalutation: 06/26/19 Patient presents with symptoms consistent with an acute cystitis. Vitals wnl. No history of fever, flank pain, or constitution symptoms to suggest ascending infection at this time. Patient is well in appearance, tolerating oral intake without difficulty. No focal abdominal tenderness to suggest acute appendicitis, biliary pathology, acute pancreatitis, tubo-ovarian abscesses, or pelvic inflammatory disease. Patient will be started on antibiotics at this time. A culture has been sent. They will be discharged with return precautions and follow-up recommendations. Differential diagnosis for back pain includes muscle spasm, muscle strain, slipped disc cauda equina syndrome, vertebral fracture, vertebral tumor, epidural abscess, pyelonephritis, or AAA. Based on history and exam, the most likely etiology of the patient's back pain is sciatic nerve pain. Emergent MRI is not indicated at this time because the patient does not have new weakness, or cauda equina syndrome. Patient does not have bladder or bowel dysfunction. Patient does not have history of IV drug use, therefore, I do not suspect an epidural abscess. Patient does not have recent weight loss or night sweats, and does not have a known history of cancer. - Vital Signs Vital signs: Temp Pulse Resp BP Pulse Ox 97.8 F 72 17 137/84 H 97 06/26/19 22:36 06/26/19 22:36 06/26/19 22:36 06/26/19 22:36 06/26/19 22:36 - Laboratory Laboratory results interpreted by me: 06/26/19 19:55 Urine Protein 100 H Ur Leukocyte Esterase LARGE H Discharge - Discharge Clinical Impression: Right sciatic nerve pain Urinary tract infection Qualifiers: Urinary tract infection type: acute cystitis Hematuria presence: without hematuria Qualified Code(s): N30.00 - Acute cystitis without hematuria Condition: Stable Disposition: HOME, SELF-CARE Instructions: Cephalexin ([facility]) Additional Instructions: Your urine shows findings consistent with a urinary tract infection. Please take all the antibiotics as directed even if your symptoms have improved. Please follow-up with your primary care physician as needed. Return to emergency room if you develop fever >101F, persistent vomiting, become lethargic, have severe pain in your sides, or any other symptoms that are concerning to you. You were seen today in the emergency department for back pain. Your back pain is most consistent with sciatic nerve pain. You may take ibuprofen 600 mg every 6 hours as needed for the pain. You may also buy [id number] Aspercreme with lidocaine and apply to the area per box instructions. If you develop a fever greater than 100.4 F, lose bowel or bladder function, are unable to walk, or have any symptoms that are worrisome to you, please return to the emergency department. Prescriptions: Cephalexin [Keflex] 500 mg PO BID #14 capsule Referrals: TARSHA MAC PA-C [Primary Care Provider] - Follow up in 3-5 days
[2019-06-27 00:22] VITALS: BP 149/89
== END 2019-06-27 00:22 | disposition home or self-care (01) ==
LOC: ER 19:08
DX: N30.00 Acute cystitis without hematuria (principal); M54.31 Sciatica, right side; E78.00 Pure hypercholesterolemia, unspecified; I10 Essential (primary) hypertension; E11.9 Type 2 diabetes mellitus without complications; Z86.711 Personal history of pulmonary embolism; Z90.49 Acquired absence of other specified parts of digestive tract; Z90.710 Acquired absence of both cervix and uterus; Z96.653 Presence of artificial knee joint, bilateral; I25.2 Old myocardial infarction
CPT/HCPCS: 99283; 96372; 87086; 81001; A9270 ×2; J1100